=== PATIENT | male | born 1965 | race African-American/Black ===

== ENCOUNTER 2019-04-20 09:43 | Emergency (ER) | payer SELFPAY ==
--- NOTE | 2019-04-20 10:20 | ER ---
Nurse's Notes [facility] Name: Angela Weber Age: 53 yrs Sex: Male : 1965 Arrival Date: 04/20/2019 Time: 09:51 Bed 17 Private MD: Diagnosis: Restlessness and agitation;Chest pain, unspecified Presentation: 04/20 09:51 Presenting complaint: EMS states: Found in street wandering around. EMS called to ss scene, then patient began complaining of chest pain. When EMS personnel attempted to assess patient, patient became combative and uncooperative. Upon arrival to ER patient is restrained and is not admitting any chest pain at this time, but states, "I'm bipolar." Patient is not answering any questions at this time. Transition of care: patient was not received from another setting of care. Onset of symptoms is unknown. Risk Assessment: Do you want to hurt yourself or someone else? Unable to obtain. Initial Sepsis Screen: Does the patient meet any 2 criteria? RR > 20 per min. HR > 90 bpm. Does the patient have a suspected source of infection? No. Patient's initial sepsis screen is negative. Care prior to arrival: handcuffs placed by [facility] prior to arrival to ED. 4 officers are at bedside. 09:51 Method Of Arrival: EMS: [facility] 09:51 Acuity: JENNIFER 2 ss Historical: - Allergies: 09:55 Unable to obtain; ss - Home Meds: 09:55 Unable to obtain [Active]; ss - PMHx: :55 Unable to obtain; ss - PSHx: :55 Unable to obtain; ss - Immunization history:: Adult Immunizations unknown. - Social history:: Smoking status: unknown. - Ebola Screening: : Unable to complete screening because. - Family history:: not pertinent. - Hospitalizations: : No recent hospitalization is reported. Screenin:19 Abuse screen: unable to obtain due to being uncooperative. Nutritional screening: No ss deficits noted. Tuberculosis screening: unable to assess. Fall Risk None identified. Assessment: 09:51 General: Appears distressed, uncomfortable, Behavior is agitated, fussy, restless, ss uncooperative. Pain: Unable to use pain scale. Patient c/o chest pain to law enforcement, however is unwilling to answer questions for appropriate assessment. Neuro: Level of Consciousness is awake, alert, Pupils are PERRLA. Cardiovascular: Pulses are palpable in right radial artery, right posterior tibial artery, left radial artery and left posterior tibial artery. GI: Abdomen is non-distended. : No signs and/or symptoms were reported regarding the genitourinary system. EENT: Oral mucosa is moist. Musculoskeletal: Capillary refill < 3 seconds, is brisk, in bilateral fingers. Swelling absent. 10:05 General: Appears uncomfortable, Behavior is uncooperative. Neuro: Level of ss Consciousness is awake, alert. Cardiovascular: Capillary refill < 3 seconds Patient's skin is warm and dry. Respiratory: Airway is patent Respiratory effort is even, Respiratory pattern is regular. Derm: Skin is intact, Skin is pink, warm \\T\\ dry. 10:05 Pain: Complains of pain in chest, bilateral wrists. Psych: 09:51 Commitment: unable to complete. Vital Signs: 09:55 BP 169 / 69; Pulse 125; Resp 23; Pulse Ox 100% on R/A; ss 10:18 Pulse 108; Resp 20; Pulse Ox 98% on R/A; ss ED Course: 09:51 Patient arrived in ED. ss 09:51 Art Tucker MD is Attending Physician. rn 09:54 Triage completed. ss 09:54 Gal Jimenez LVN is Primary Nurse. em 09:55 Arm band placed on right wrist. ss 10:05 EKG done, by ED staff, reviewed by Art Tucker MD. em 10:19 Patient has correct armband on for positive identification. officers at bedside, pt in ss custody, restrained with handcuffs to both side rails. Pulse ox on. NIBP on. 10:43 No provider procedures requiring assistance completed. Patient did not have IV access ss during this emergency room visit. Administered Medications: No medications were administered Outcome: 10:20 Discharge ordered by . rn 10:43 Discharged to Law Enforcement 10:43 Condition: stable 10:43 Instructed on follow up and referral plans. 10:46 Patient left the ED. Signatures: Gal Jimenez LVN LVN em Art Tucker MD MD rn Smirch, Shelby, RN RN Corrections: (The following items were deleted from the chart) 10:46 10:05 Pain: Complains of pain in chest [facility] 10:50 10:05 General: Appears in no apparent distress. Behavior is uncooperative, [facility]
--- NOTE | 2019-04-20 10:20 | EDPHYS ---
Physician Documentation [facility] Name: Angela Weber Age: 53 yrs Sex: Male : 1965 Arrival Date: 04/20/2019 Time: 09:51 Bed 17 Private MD: ED Physician Art Tucker HPI: 04/20 10:09 This 53 yrs old Black Male presents to ER via EMS with complaints of Psych Problem. rn 10:09 This 53 yrs old Black Male presents to ER via EMS with complaints of chest pain. rn 10:10 The patient or guardian reports chest pain that is located primarily in the chest rn diffusely. Onset: at an unknown time. Unable to obtain HPI due to patient is being uncooperative. Pt picked up on street yelling and stopping traffic, arrested, began to complain of diffuse chest pain, brought here by police officers for combativeness and clearance. Patient refuses to comply, doesn't speak after saying his chest doesn't hurt anymore. Wont give us details, repeatedly just asks that handcuffs are removed. Police nice enough to turn patient around and handcuff him to bed in more comfortable position and still does not want to speak. . Historical: - Allergies: 09:55 Unable to obtain; ss - Home Meds: :55 Unable to obtain [Active]; ss - PMHx: :55 Unable to obtain; ss - PSHx: :55 Unable to obtain; ss - Immunization history:: Adult Immunizations unknown. - Social history:: Smoking status: unknown. - Ebola Screening: : Unable to complete screening because. - Family history:: not pertinent. - Hospitalizations: : No recent hospitalization is reported. ROS: 10:10 Unable to obtain ROS due to patient being uncooperative. rn Exam: 10:10 Constitutional: This is a well developed, well nourished patient who is awake, alert, rn uncooperative. Agitated and trying to remove handcuffs. Head/Face: Normocephalic, atraumatic. Eyes: Pupils equal round and reactive to light, extra-ocular motions intact. Lids and lashes normal. Conjunctiva and sclera are non-icteric and not injected. Cornea within normal limits. Periorbital areas with no swelling, redness, or edema. ENT: MMM Neck: Trachea midline, no masses Cardiovascular: Regular rate and rhythm. No pulse deficits. Respiratory: Speaking full sentences, yelling at police Abdomen/GI: soft, non-tender MS/ Extremity: Pulses equal, no cyanosis. Neurovascular intact. Full, normal range of motion. Equal circumference. Neuro: Awake and alert, moves all 4 extremities, does not cooperate with rest of exam. Vital Signs: 09:55 BP 169 / 69; Pulse 125; Resp 23; Pulse Ox 100% on R/A; ss 10:18 Pulse 108; Resp 20; Pulse Ox 98% on R/A; ss MDM: 09:52 Patient medically screened. rn 10:10 Differential diagnosis: anxiety, chest wall pain, tachycardia, NV, malingering. Data rn reviewed: vital signs, nurses notes. 10:16 ED course: Pt refuses to comply with anything, wont give history, has now calmed down, rn police still present. I have visited with patient 3 separate occasions and will not give me anything to work off of. No signs of trauma, improving vitals, able to get ECG that does not show any ischemia. Not sure if on drugs, but smells of ETOH. Police state their plan is to take to intermediate as originally planned, needed clearance for chest pain that patient is no longer complaining of. . 04/20 09:54 Order name: EKG; Complete Time: 09:55 rn 04/20 09:54 Order name: EKG - Nurse/Tech; Complete Time: 10:09 rn Administered Medications: No medications were administered Disposition: 04/20/19 10:20 Discharged to Home. Impression: Restlessness and agitation, Chest pain, unspecified. - Condition is Stable. - Discharge Instructions: Nonspecific Chest Pain, Pain Without a Known Cause. - Medication Reconciliation Form, Thank You Letter, Antibiotic Education, Prescription Opioid Use form. - Follow up: Private Physician; When: As needed; Reason: Recheck today's complaints, Re-evaluation by your physician. - Problem is new. - Symptoms have improved. Signatures: Art Tucker MD MD rn Smirch, Shelby, RN RN ss Corrections: (The following items were deleted from the chart) 10:46 10:20 04/20/2019 10:20 Discharged to Home. Impression: Restlessness and agitation; ss Chest pain, unspecified. Condition is Stable. Forms are Medication Reconciliation Form, Thank You Letter, Antibiotic Education, Prescription Opioid Use. Follow up: Private Physician; When: As needed; Reason: Recheck today's complaints, Re-evaluation by your physician. Problem is new. Symptoms have improved. rn
[2019-04-20 13:26] VITALS: BP 169/69
[2019-04-20 13:28] VITALS: O2SAT 98
--- NOTE | 2019-04-20 17:39 | EKG ---
Test Date: 2019-04-20 Test Time: 10:05:09 [employer]writer Assembly [employer] Inspector: MARICRUZ MEASUREMENT RESULTS: Intervals: Rate: 117 NM: 148 QRSD: 90 QT: 342 QTc: 477 [place]: P: 62 NM: 148 QRS: 70 T: 68 INTERPRETIVE STATEMENTS: Sinus tachycardia Possible Left atrial enlargement Borderline ECG No previous ECG available for comparison Electronically Signed On 04-20-19 17:39:03 CDT by Jose Novak
== END 2019-04-20 10:46 | disposition home or self-care (01) ==
LOC: ER 09:43
DX: R07.9 Chest pain, unspecified (principal)
CPT/HCPCS: 93005; 99284

== ENCOUNTER 2019-10-14 07:34 | Inpatient (IN) | payer OTHER ==
[2019-10-14 08:19] LABS: Absolute Lymphocytes (CBC) 1.2 K/uL (0.7-4.9); Basophils % 0.4 % (0-1.3); Hematocrit 45.6 % (39.6-49.0); MPV 9.8 fL (7.6-11.3); RBC Red Blood Cell Count 5.09 M/uL (4.33-5.43)
--- NOTE | 2019-10-14 08:23 | RAD REPORT ---
EXAM DESCRIPTION: CT - Head Brain Wo Cont - 10/14/2019 8:10 am CLINICAL HISTORY: SYNCOPE, transient alteration of awareness COMPARISON: No comparisons TECHNIQUE: Axial 5 mm thick images of the head were obtained without IV contrast. All CT scans are performed using dose optimization technique as appropriate and may include automated exposure control or mA/KV adjustment according to patient size. FINDINGS: No intracranial hemorrhage, mass, edema or shift of mid-line structures. No acute cortical based infarction identified. Ventricles are prominent. Mild for age volume loss changes are present. No abnormal extra-axial fluid collections. Prominent for age decreased attenuation is present in the left cerebral white matter extending into the left thalamus and basal ganglia. There are similar but less pronounced areas of diminished attenuation in the right cerebral hemisphere. Questionable dimin ished attenuation in the brainstem. This has the appearance of prominent chronic ischemic change. Non hemorrhagic CVA is easily masked in this setting. Mastoid air cells are clear. Right maxillary sinus is fully opacified. Ethmoid air cells are partiall y opacified. Frontal sinuses are not pneumatized. No acute bony findings. IMPRESSION: No hemorrhage is present and no intracranial mass lesions seen. Extensive chronic ischemic changes are present given the patient's age. Changes involve the basal hang glia, thalamus and probably brainstem tissues as well. Nonhemorrhagic CVA is easily masked in this setting.
[2019-10-14 08:24] LABS: Protime INR 0.94
[2019-10-14] MEDS ORDERED: Levofloxacin 750mg IV 750 MG/150 ML BAG IV ONE (08:24)
[2019-10-14] MEDS ORDERED: NA CHLORIDE 0.9% 1,000 ML ONE (08:24)
[2019-10-14] MEDS ORDERED: METHYLPREDNISOLONE 125 MG INJ ONE (08:24)
[2019-10-14] MEDS ORDERED: LEVALBUTEROL 1.25 MG/3 ML NEB ONE (08:24)
[2019-10-14 08:36] LABS: ALT/SGPT 16 U/L (12-78); AST/SGOT 14 U/L (15-37); Albumin 3.3 g/dL (3.4-5.0); Alkaline Phosphatase 66 U/L (45-117); BUN Blood Urea Nitrogen 13 mg/dL (7-18); Bicarbonate 25 mmol/L (21-32); Bilirubin Direct < 0.1 mg/dL (0-0.2); Bilirubin Total 0.3 mg/dL (0.2-1.0); CKMB Creatine Kinase MB 1.6 ng/mL (0.3-3.6); Creatine Phosphokinase 152 U/L (39-308); Glucose Level 104 mg/dL (74-106); Lipase 63 U/L (73-393); Magnesium 2.2 mg/dL (1.8-2.4); NT PRO-BNP 889 pg/mL (<125); Potassium 3.6 mmol/L (3.5-5.1); Protein, Total 7.5 g/dL (6.4-8.2); Sodium Level 142 mmol/L (136-145); Troponin (Emerg Dept Use Only) 0.03 ng/mL (0.0-0.045)
--- NOTE | 2019-10-14 09:07 | ER ---
Nurse's Notes [facility] Name: Angela Weber Age: 54 yrs Sex: Male : 1965 Arrival Date: 10/14/2019 Time: 07:40 Bed 2 Private MD: Diagnosis: Sepsis due to unspecified staphylococcus;Severe sepsis without septic shock;Pneumonia due to other specified bacteria;Syncope and collapse Presentation: 10/13 07:40 Chief complaint: EMS states: [facility] AND [facility] AT HOME. Coronavirus screen: The patient has bp NOT traveled to [place] in the past 14 days. Proceed with normal triage procedures. The patient has NOT had contact with known and/or suspected case of Coronavirus. Ebola Screen: No symptoms or risks identified at this time. Initial Sepsis Screen: Does the patient meet any 2 criteria? Altered Mental Status. HR > 90 bpm. Yes Does the patient have a suspected source of infection? No. Patient's initial sepsis screen is negative. Risk Assessment: Do you want to hurt yourself or someone else? Patient reports no desire to harm self or others. 07:40 Method Of Arrival: EMS: [employer] bp 07:40 Acuity: JENNIFER 2 bp 07:40 Onset of symptoms was October 14, 2019 at 06:00. bp 07:45 Care prior to arrival: IV initiated. 22 GA, in the right antecubital area, Glucose bp check: 131. Triage Assessment: 07:43 General: Appears in no apparent distress. comfortable, unkempt, Behavior is calm, bp cooperative, CONFUSED. Pain: Denies pain. EENT: No deficits noted. Neuro: Level of Consciousness is awake, alert, Oriented to person, place. Cardiovascular: Rhythm is sinus tachycardia. Respiratory: Airway is patent Respiratory effort is even, labored, Respiratory pattern is regular, symmetrical. GI: No signs and/or symptoms were reported involving the gastrointestinal system. : No signs and/or symptoms were reported regarding the genitourinary system. Derm: No deficits noted. Musculoskeletal: No deficits noted. Historical: - Allergies: 07:43 Unable to obtain; bp - PMHx: 07:43 Hypertension; CAD; bp - Immunization history:: Adult Immunizations unknown. - Social history:: Smoking status: unknown Patient/guardian denies using alcohol, street drugs, The patient lives with family, with spouse. - Family history:: not pertinent. Screenin:46 Abuse screen: Denies threats or abuse. Denies injuries from another. Nutritional bp screening: No deficits noted. Tuberculosis screening: No symptoms or risk factors identified. Fall Risk None identified. Assessment: 07:45 General: SEE TRIAGE NOTE. bp 08:30 Reassessment: PT RETURNED FROM CT. UOP PENDING, NO CHANGE IN MENTAL STATUS. bp 09:22 Reassessment: ADMIT INITIATED. PT MENTATION AT BASELINE, MAINTAINING SAT ON 2LNC. bp 10:35 Reassessment: ADMIT COMPLETE. PT MENTATION AT BASELINE. bp Vital Signs: 07:40 BP 179 / 101; Pulse 113; Resp 21; Temp 98.4; Pulse Ox 88% on R/A; Weight 63.5 kg; bp 08:30 BP 172 / 71; Pulse 97; Resp 14; Pulse Ox 100% ; bp 09:22 BP 170 / 112; Pulse 99; Resp 20; Pulse Ox 100% ; bp 10:35 BP 184 / 88; Pulse 99; Resp 20; Pulse Ox 100% ; bp ED Course: 07:40 Patient arrived in ED. bp 07:40 Vannessa Ravi F[facility]C [facility]. snw 07:40 Evaristo Cam MD is Attending Physician. snw 07:42 Triage completed. bp 07:43 Arm band placed on. bp 07:45 Maintain EMS IV. Dressing intact. Good blood return noted. Site clean \T\ dry. Gauge \T\ bp site: 20 GAUGE LEFT AC. 07:46 Misha Veliz, RN is Primary Nurse. bp 07:46 Patient has correct armband on for positive identification. Bed in low position. Call bp light in reach. Side rails up X2. 07:57 XRAY CXR (1 view) In Process Unspecified. EDMS 08:03 EKG done, by oil field technician. reviewed by Evaristo Cam MD. at1 08:10 CT Head Brain wo Cont In Process Unspecified. EDMS 09:04 Mehrdad Lake MD is Hospitalizing Provider. ma2 10:14 No provider procedures requiring assistance completed. Patient admitted, IV remains in bp place. Administered Medications: 08:05 Drug: Xopenex 1.25 mg Route: Inhalation; bp 08:05 Drug: SOLU-Medrol 125 mg Route: IVP; Site: right antecubital; bp 10:50 Follow up: Response: No adverse reaction bp 08:05 Drug: NS 0.9% 1000 ml Route: IV; Rate: 1 bolus; Site: right antecubital; bp 10:50 Follow up: IV Status: Infusion continued upon admission bp 08:20 Drug: LevaQUIN 750 mg Volume: 150 ml; Route: IVPB; Infused Over: 90 mins; Site: right bp antecubital; 10:00 Follow up: IV Status: Completed infusion; IV Intake: 250ml bp Intake: 10:00 IV: 250ml; Total: 250ml. bp Outcome: 09:05 Decision to Hospitalize by Provider. ma2 10:49 Admitted to Med/surg accompanied by tech, family with patient, via stretcher, room 411, bp with oxygen, with chart, Report called to ERICA PERDOMO 10:49 Condition: stable 10:49 Instructed on the need for admit. 11:12 Patient left the ED. iw Signatures: Dispatcher [employer] EDMS Vannessa Ravi, PACKAGING ASSOCIATE-C PACKAGING ASSOCIATE-Csnw Angelica Mckeon, RN RN iw Nicole Pillai, armhole baster hand EKG Tat1 Misha Veliz, CONOR RN bp Evaristo Cam MD MD ma2
--- NOTE | 2019-10-14 09:08 | EDPHYS ---
Physician Documentation [facility] Name: Angela Weber Age: 54 yrs Sex: Male : 1965 Arrival Date: 10/14/2019 Time: 07:40 Bed 2 Private MD: ED Physician Evaristo Cam HPI: 10/13 09:01 This 54 yrs old Male presents to ER via EMS with complaints of Altered Mental Status. ma2 09:01 The patient presents with. Onset: The symptoms/episode began/occurred gradually, 1 ma2 day(s) ago. Associated signs and symptoms: Pertinent negatives: ataxia, combativeness, confusion. Current symptoms: In the emergency department the patient's symptoms are unchanged from the initial presentation. The patient has not experienced similar symptoms in the past. has had cough for 2 days, this morning found him with low LOC, spo2 was 70s, when ems arrived he was back to 90 ater 1 albuterol nebs . Historical: - Allergies: 07:43 Unable to obtain; bp - PMHx: 07:43 Hypertension; CAD; bp - Immunization history:: Adult Immunizations unknown. - Social history:: Smoking status: unknown Patient/guardian denies using alcohol, street drugs, The patient lives with family, with spouse. - Family history:: not pertinent. ROS: 09:01 Constitutional: Negative for fever, chills, and weight loss. ma2 09:01 All other systems are negative. Exam: 09:01 Constitutional: This is a well developed, well nourished patient who is awake, alert, ma2 and in no acute distress. Head/Face: Normocephalic, atraumatic. Eyes: Pupils equal round and reactive to light, extra-ocular motions intact. Lids and lashes normal. Conjunctiva and sclera are non-icteric and not injected. Cornea within normal limits. Periorbital areas with no swelling, redness, or edema. ENT: Nares patent. No nasal discharge, no septal abnormalities noted. Tympanic membranes are normal and external auditory canals are clear. Oropharynx with no redness, swelling, or masses, exudates, or evidence of obstruction, uvula midline. Mucous membranes moist. Neck: Trachea midline, no thyromegaly or masses palpated, and no cervical lymphadenopathy. Supple, full range of motion without nuchal rigidity, or vertebral point tenderness. No Meningismus. Chest/axilla: Normal chest wall appearance and motion. Nontender with no deformity. No lesions are appreciated. Cardiovascular: Regular rate and rhythm with a normal S1 and S2. No gallops, murmurs, or rubs. Normal PMI, no JVD. No pulse deficits. Abdomen/GI: Soft, non-tender, with normal bowel sounds. No distension or tympany. No guarding or rebound. No evidence of tenderness throughout. 09:01 Respiratory: mild respiratory distress is noted, Respirations: asymmetrical chest movement, Breath sounds: rales, rhonchi, that are mild, are scattered. 09:01 MS/ Extremity: Pulses equal, no cyanosis. Neurovascular intact. Full, normal range ma2 of motion. Neuro: Awake and alert, GCS 15, oriented to person, place, time, and situation. Cranial nerves II-XII grossly intact. Motor strength 5/5 in all extremities. Sensory grossly intact. Cerebellar exam normal. Normal gait. Vital Signs: 07:40 BP 179 / 101; Pulse 113; Resp 21; Temp 98.4; Pulse Ox 88% on R/A; Weight 63.5 kg; bp 08:30 BP 172 / 71; Pulse 97; Resp 14; Pulse Ox 100% ; bp 09:22 BP 170 / 112; Pulse 99; Resp 20; Pulse Ox 100% ; bp 10:35 BP 184 / 88; Pulse 99; Resp 20; Pulse Ox 100% ; bp MDM: 07:52 Patient medically screened. ma2 09:01 Differential Diagnosis: pneumonia, TIA, UTI, volume depletion. Data reviewed: vital ma2 signs, nurses notes. Counseling: I had a detailed discussion with the patient and/or guardian regarding: the historical points, exam findings, and any diagnostic results supporting the discharge/admit diagnosis, the presence of at least one elevated blood pressure reading (>120/80) during this emergency department visit, the need for outpatient follow up. Response to treatment: the patient's symptoms have markedly improved after treatment. 10/13 07:44 Order name: Blood Culture Adult (2) ma2 10/13 07:44 Order name: BMP; Complete Time: 08:41 ma2 10/13 07:44 Order name: CBC with Diff; Complete Time: 08:41 ma2 10/13 07:44 Order name: Ckmb; Complete Time: 08:41 ma2 10/13 07:44 Order name: CPK; Complete Time: 08:41 ma2 10/13 07:44 Order name: Hepatic Function; Complete Time: 08:41 ma2 10/13 07:44 Order name: Lipase; Complete Time: 08:41 ma2 10/13 07:44 Order name: Magnesium; Complete Time: 08:41 ma2 10/13 07:44 Order name: NT PRO-BNP; Complete Time: 08:41 ma2 10/13 07:44 Order name: PT-INR; Complete Time: 08:41 ma2 10/13 07:44 Order name: Ptt, Activated; Complete Time: 08:41 ma2 10/13 07:44 Order name: Troponin (emerg Dept Use Only); Complete Time: 08:41 ma2 10/13 07:44 Order name: Flu; Complete Time: 08:48 ma2 10/13 07:49 Order name: Lactate; Complete Time: 08:48 bp 10/13 07:44 Order name: XRAY CXR (1 view) ma2 10/13 07:44 Order name: EKG; Complete Time: 07:46 ma2 10/13 07:44 Order name: Cardiac monitoring; Complete Time: 07:47 ma2 10/13 07:44 Order name: EKG - Nurse/Tech; Complete Time: 08:04 ma2 10/13 07:44 Order name: IV Saline Lock; Complete Time: 07:46 ma2 10/13 07:44 Order name: CT Head Brain wo Cont; Complete Time: 08:41 ma2 10/13 07:49 Order name: Procalcitonin bp 10/13 07:53 Order name: UDS ma2 10/13 07:53 Order name: Alcohol Level; Complete Time: 08:48 ma2 10/13 09:49 Order name: Urine Dipstick--Ancillary (enter results) bd 10/13 10:02 Order name: Urine Dipstick-Ancillary EDMS 10/13 07:44 Order name: Labs collected and sent; Complete Time: 08:04 ma2 10/13 07:44 Order name: O2 Per Protocol; Complete Time: 07:46 ma2 10/13 07:44 Order name: O2 Sat Monitoring; Complete Time: 07:46 ma2 10/13 07:53 Order name: Urine Dipstick-Ancillary (obtain specimen); Complete Time: 10:01 ma2 Administered Medications: 08:05 Drug: Xopenex 1.25 mg Route: Inhalation; bp 08:05 Drug: SOLU-Medrol 125 mg Route: IVP; Site: right antecubital; bp 10:50 Follow up: Response: No adverse reaction bp 08:05 Drug: NS 0.9% 1000 ml Route: IV; Rate: 1 bolus; Site: right antecubital; bp 10:50 Follow up: IV Status: Infusion continued upon admission bp 08:20 Drug: LevaQUIN 750 mg Volume: 150 ml; Route: IVPB; Infused Over: 90 mins; Site: right bp antecubital; 10:00 Follow up: IV Status: Completed infusion; IV Intake: 250ml bp Disposition: 10/14/19 09:05 Hospitalization ordered by Mehrdad Lake for Inpatient Admission. Preliminary diagnosis are Severe sepsis without septic shock, Sepsis due to unspecified staphylococcus, Pneumonia due to other specified bacteria, Syncope and collapse. - Bed requested for Telemetry/MedSurg (Inpatient). - Status is Inpatient Admission. iw - Condition is Stable. - Problem is new. - Symptoms are unchanged. Signatures: Dispatcher [employer] Flaca Rodriguez RN RN dw Williams, Irene, RN RN iw Peltier, Brian, RN RN bp Alzahri, Mohammad, MD MD ma2 Corrections: (The following items were deleted from the chart) 09:48 09:05 Hospitalization Ordered by Mehrdad Lake MD for Inpatient Admission. Preliminary dw diagnosis is Severe sepsis without septic shockSepsis due to unspecified staphylococcus; Pneumonia due to other specified bacteria; Syncope and collapse. Bed requested for Telemetry/MedSurg (Inpatient). Status is Inpatient Admission. Condition is Stable. Problem is new. Symptoms are unchanged. ma2 11:12 09:48 10/14/2019 09:05 Hospitalization Ordered by Mehrdad Lake MD for Inpatient iw Admission. Preliminary diagnosis is Severe sepsis without septic shockSepsis due to unspecified staphylococcus; Pneumonia due to other specified bacteria; Syncope and collapse. Bed requested for Telemetry/MedSurg (Inpatient). Status is Inpatient Admission. Condition is Stable. Problem is new. Symptoms are unchanged. dw
--- NOTE | 2019-10-14 09:37 | RAD REPORT ---
EXAM DESCRIPTION: RAD - Chest Single View - 10/14/2019 7:57 am CLINICAL HISTORY: CONGESTION, code sepsis chest film COMPARISON: No comparisons TECHNIQUE: AP portable chest image was obtained 10/14/2019 7:57 am . FINDINGS: Normal lung volumes noted. Hazy alveolar opacification present in the mid and lower right lung field. Mild perihilar opacification present. Trachea is midline. No measurable pleural effusion and no pneumothorax. No acute bony abnormality seen. No acute aortic findings suspected. IMPRESSION: Airspace opacification right lung field without dense consolidation. Right-side pneumoni a is most likely.
[2019-10-14 10:00] LABS: Barbiturates NEGATIVE (NEGATIVE); Benzodiazepines NEGATIVE (NEGATIVE); Cocaine NEGATIVE (NEGATIVE); METHAMPHETAM NEGATIVE (NEGATIVE); Methadone NEGATIVE (NEGATIVE); Opiates NEGATIVE (NEGATIVE); Phencyclidine NEGATIVE (NEGATIVE); THC Cannibis NEGATIVE (NEGATIVE)
[2019-10-14 10:01] LABS: Urine Blood 1+ (NEG); Urine Glucose NEGATIVE (NEG); Urine Protein 2+ (NEG); Urine Specific Gravity >1.030 (1.005-1.030)
[2019-10-14] MEDS ORDERED: ONDANSETRON 4 MG/2 ML VIAL IV PRN (11:31)
[2019-10-14] MEDS ORDERED: ALBUTEROL 2.5 MG/3 ML NEB SOL NEB PRN ×2 (11:31→17:00)
[2019-10-14] MEDS ORDERED: ACETAMINOPHEN 500 MG TAB PO PRN (11:31)
[2019-10-14] MEDS: NA CHLORIDE 0.9% 1,000 ML IV SCH ×2 (11:31→22:30)
[2019-10-14] MEDS ORDERED: INFLUENZA VACCINE (for 3y+) 0.5 ML DOSE IMVAC ONE (12:00)
[2019-10-14] MEDS: CEFTRIAXONE/SWI 1gm 1 GM/10 ML SYR IV SCH ×2 (12:15→22:29)
--- NOTE | 2019-10-14 12:22 | EKG ---
Test Date: 2019-10-14 Test Time: 08:00:56 Manager Fund: BEAU MEASUREMENT RESULTS: Intervals: Rate: 105 SC: 168 QRSD: 80 QT: 370 QTc: 489 Linn: P: 67 SC: 168 QRS: 78 T: 69 INTERPRETIVE STATEMENTS: Sinus tachycardia Minimal voltage criteria for LVH, may be normal variant Borderline ECG Compared to ECG 04/20/2019 10:05:09 Left ventricular hypertrophy now present Electronically Signed On 10-14-19 12:21:19 [employer] SUPERVIS[employer] by Jarod Sommer
[2019-10-14] MEDS: AZITHROMYCIN IV 500 MG in NA CHLORIDE 0.9% 250 ML IVPB SCH (14:02)
[2019-10-14] MEDS: DULERA 100/5 (MOMETASONE/FORMOTEROL) INHALER IH SCH (21:00)
[2019-10-14] MEDS: carvediloL 3.125 MG TAB PO SCH (22:27)
[2019-10-14] MEDS: CLOTRIMAZOLE 1% CREAM 15 GM TOP SCH (22:29)
--- NOTE | 2019-10-14 23:47 | HP ---
Date of Admission: 10/14/2019 Chief Complaint: Nonresponsiveness, hypoxia, pneumonia. History Of Present Illness: Patient is a 54-year-old male with past medical history of congestive heart failure, hypertension, who was in his usual state of health until day of admission when the patient was found to be nonresponsive in the morning, not responding to his . EMS was called. He was found to be hypoxic with the O2 saturations in 70s. Patient otherwise denies any significant fever, chills. No ill contacts. Patient was placed on oxygen and he was brought in to the ER. By the time he arrived to the ER, he became more responsive, was alert and oriented x2. His workup revealed elevated white count of 12,000. His lactate was 4. Procalcitonin was negative. He was tachycardic and tachypneic. Patient is a heavy smoker and likely has undiagnosed COPD. He was given IV fluids, IV antibiotics. His repeat lactate improved to 2 and he was referred for admission. Patient's symptoms were constant, moderate, progressively worsening. By the time I saw him in the ER, he was awake, alert, oriented, eating lunch with his family. Past Medical History: Congestive heart failure, hypertension, and most likely undiagnosed COPD. Past Surgical History: None. Allergies: NO KNOWN DRUG ALLERGIES. Medications: Patient takes amlodipine 5 mg daily, Coreg 3.125 mg b.i.d., Lasix 40 mg daily, and Lotrimin topical ointment as needed. Family History: Positive for heart disease, stroke, diabetes. Review of Systems: Ten-point system reviewed, negative except as per HPI. Physical Examination: Vital Signs: Temperature 98.4, heart rate 113, respirations 21, blood pressure 179/101, O2 saturations 88% on 2 L. General: Awake, alert, oriented, in some mild respiratory distress, ill- appearing male. HEENT: Normocephalic, atraumatic. PERRLA. EOMI. Dry mucous membranes. Oropharynx is clear. Poor dentition. Conjunctivae are anicteric. Neck: Supple. No JVD. Trachea midline. CV: S1, S2. Sinus tachycardia. Peripheral pulses present. Respiratory: Diminished breath sounds, worse on the right. No crackles. Minimal wheezing. Patient is tachypneic with use of accessory muscles. Gastrointestinal: Abdomen is soft, nontender, nondistended. Positive bowel sounds. No guarding or rigidity. Extremities: No clubbing, cyanosis, or edema. No calf tenderness. NEUROLOGIC: Cranial nerves 2 through 12 intact grossly. No focal neurological deficits. Speech is normal. SKIN: No rashes. Normal skin turgor. Psychiatric: Mood is okay. Affect is full. Insight and judgment are good. Laboratory Data: WBC 12.4, H and H 14.5 and 45.6, platelets 195, neutrophils 79 %. INR 0.94. Sodium 142, potassium 3.6, chloride 109, CO2 of 25, BUN 13, creatinine 1.3, glucose 104, lactate 4.1, repeat lactate is 2, calcium 8.9, magnesium 2.2. Troponin 0.03. Albumin 3.3. Procalcitonin less than 0.05. UA : 1+ blood, negative nitrite, negative leukocyte esterase. UDS is negative. Alcohol level less than 10. Influenza screen is negative. Imaging Studies: Chest x-ray, personally reviewed, shows airspace opacification right lung field without dense consolidation, right-sided pneumonia is most likely. CT scan of the head, personally reviewed, shows no hemorrhage, no intracranial mass lesion seen, extensive chronic ischemic changes are present given the patient's age. Changes involve the basal ganglia , thalamus, and probably brainstem tissues Assessment and plan: 1. Syncope. Unclear etiology. Possible neurogenic vs cardiogenic causes. Place on telemetry. CT brain shows extensive chronic disease, may need MRI to r/ out occult CVA. Will obtain echo, carotid sono. Monitor closely 2. Acute respiratory failure. Patient was hypoxic as low as 70% but improved on nasal cannula. Likely due to PNA, COPD 3. PNA right sided. Likely aspiration type. Start on IV abx. Blood and sputum cultures. 4. COPD. Chronic bronichits. Never been diagnosed before. heavy smoker. Add nebs and advair. 5. CHF. Likely diastolic heart failure. Resume home meds. Monitor I/Os 6. HTN. Stable. Resume home meds. 7. Nicotine dependance w cigarette smoking. Counseled. Admit pt to med surg, place as jake LEE/BELKYS Voice ID: [id number] RICHARDSON
[2019-10-15 04:25] LABS: Absolute Lymphocytes (CBC) 1.4 K/uL (0.7-4.9); Basophils % 0.2 % (0-1.3); Hematocrit 37.5 % (39.6-49.0); Lymphocytes % 9.9 % (15.3-44.8); MPV 9.5 fL (7.6-11.3); RBC Red Blood Cell Count 4.16 M/uL (4.33-5.43)
[2019-10-15 04:47] LABS: Albumin 2.9 g/dL (3.4-5.0); Bilirubin Total 0.3 mg/dL (0.2-1.0); Potassium 4.3 mmol/L (3.5-5.1); Protein, Total 6.7 g/dL (6.4-8.2)
[2019-10-15] MEDS: NA CHLORIDE 0.9% 1,000 ML IV SCH ×2 (09:29→17:31)
[2019-10-15] MEDS: AMLODIPINE 5 MG TAB PO SCH (09:30)
[2019-10-15] MEDS: carvediloL 3.125 MG TAB PO SCH ×2 (09:30→20:43)
[2019-10-15] MEDS: ENOXAPARIN 40 MG/0.4 ML SQ SCH (09:30)
[2019-10-15] MEDS: DULERA 100/5 (MOMETASONE/FORMOTEROL) INHALER IH SCH ×2 (09:30→20:45)
[2019-10-15] MEDS: CEFTRIAXONE/SWI 1gm 1 GM/10 ML SYR IV SCH ×2 (09:30→20:43)
[2019-10-15] MEDS: CLOTRIMAZOLE 1% CREAM 15 GM TOP SCH ×2 (09:31→20:46)
[2019-10-15] MEDS: FUROSEMIDE 40 MG TABLET PO SCH (09:33)
--- NOTE | 2019-10-15 12:41 | P.CNS ---
Date of Consult: 10/15/19 Reason for Consult: poss COPD/ pneumonia Chief Complaint: Unresponsive History of Present Illness: PT i s54 yrs of age hevy smoker was found unresponsive. Denies any symptoms. Family at bedsde. No SOb fever or cough. No prior Hxo fCOPD. Heart problems and HTN .CT head neg. Poss R lung pneumonia. Elevated WBC Allergies No Known Allergies Allergy (Unverified 10/14/19 11:31) Home Medications: Amlodipine [Norvasc*] 1 tab PO DAILY 10/14/19 Clotrimazole [Lotrimin 1% Cream*] 1 appl TOP BID 10/14/19 Furosemide 1 tab PO DAILY 10/14/19 carvediloL [Carvedilol] 1 tab PO BID 10/14/19 Aspirin [Aspirin EC 81 MG] 81 mg PO DAILY #30 tablet.dr 10/17/19 Atorvastatin Calcium [Lipitor] 40 mg PO BEDTIME #30 tab 10/17/19 Azithromycin Tab [Zithromax*] 250 mg PO DAILY #3 tab 10/17/19 Cefuroxime Axetil [Cefuroxime] 500 mg PO BID #10 tab 10/17/19 Mometasone/Formoterol [Dulera 100 Mcg/5 Mcg Inhaler] 2 puff IH BID #1 inhaler carBAMazepine [Tegretol*] 200 mg PO BID #60 tab 10/17/19 levETIRAcetam [Keppra*] 500 mg PO BID #60 tab 10/17/19 - Past Medical/Surgical History Diabetic: No -: HTN -: CAD - Social History Smoking Status: Current every day smoker Alcohol use: Yes CD- Drugs: No Caffeine use: Yes Place of Residence: Home Review of Systems 10-point ROS is otherwise unremarkable Physical Examination Temp Pulse Resp BP Pulse Ox 97.7 F 73 16 148/68 H 100 10/15/19 12:00 10/15/19 12:00 10/15/19 12:00 10/15/19 12:00 10/15/19 12:00 General: Alert, Oriented x3 HEENT: Atraumatic Neck: Supple Respiratory: Clear to auscultation bilaterally Cardiovascular: No edema, Regular rate/rhythm Gastrointestinal: Normal bowel sounds, Soft and benign Musculoskeletal: No clubbing, No contractures - Problems (1) Pneumonia Current Visit: Yes Status: Acute Plan: Age 54 yrs of age found unresponsive. No prior Hx Denies any neurological symptoms. Hypoxic. Likely pneumonia. Heavy smoker. Poor historian. FAmily members at bedside.Ct neg. consider D/C on Levaquin an dDulera prn . f/u with in 2 wks .Cultures neg. Ct head neg. Doubt stroke. Counselled not to smoke. Qualifiers: Pneumonia type: due to unspecified organism Laterality: right
[2019-10-15] MEDS: AZITHROMYCIN IV 500 MG in NA CHLORIDE 0.9% 250 ML IVPB SCH (13:54)
--- NOTE | 2019-10-15 14:57 | RAD REPORT ---
EXAM DESCRIPTION: - CP - 10/15/2019 2:43 pm CLINICAL HISTORY: syncope Headache COMPARISON: No comparisons TECHNIQUE: Real-time sonographic evaluation of both carotid systems was performed. Doppler interroga tion was performed with waveform tracing bilaterally. FINDINGS: Normal high resistance waveforms are noted in both external carotid arteries. The common c arotid arteries and internal carotid arteries show normal low resistance waveforms. Small hard plaque is present in the left carotid bulb. Peak systolic and end diastolic velocity value s and the ICA/CCA ratios are in the non-hemodynamically significant range. Antegrade flow seen in both vertebral arteries. IMPRESSION: Small hard plaque is present in the left carotid bulb. No evidence of a hemodynamically significant stenosis.
--- NOTE | 2019-10-15 15:48 | ECHO ---
HEIGHT: 5 ft 4 in WEIGHT: 139 lb 0 oz DATE OF STUDY: 10/15/[address]: Mehrdad Lake MD 2-DIMENSIONAL: YES M.MODE: YES DOPPLER: YES COLOR FLOW: YES TDS: NO PORTABLE: NO DEFINITY: NO BUBBLE STUDY: NO DIAGNOSIS: SYNCOPE CARDIAC HISTORY: CATHERIZATION: NO SURGERY: NO PROSTHETIC VALVE: NO PACEMAKER: NO MEASUREMENTS (cm) DIASTOLIC (NORMALS) SYSTOLIC (NORMALS) IVSd 1.0 (0.6-1.2) LA Diam 2.5 (1.9-4.0) LVEF 71% LVIDd 4.7 (3.5-5.7) LVIDs 2.8 (2.0-3.5) %FS 41% LVPWd 1.1 (0.6-1.2) Ao Diam 2.5 (2.0-3.7) 2 DIMENSIONAL ASSESSMENT: RIGHT ATRIUM: NORMAL LEFT ATRIUM: NORMAL RIGHT VENTRICLE: NORMAL LEFT VENTRICLE: NORMAL TRICUSPID VALVE: NORMAL MITRAL VALVE: NORMAL PULMONIC VALVE: NORMAL AORTIC VALVE: NORMAL PERICARDIAL EFFUSION: NONE AORTIC ROOT: NORMAL LEFT VENTRICULAR WALL MOTION: NORMAL DOPPLER/COLOR FLOW: MILD AORTIC REGURGITATION. COMMENTS: NORMAL 2D ECHOCARDIOGRAM. MILD AORTIC REGURGITATION. TECHNOLOGIST: Dom GOTTLIEB
--- NOTE | 2019-10-15 16:03 | CON ---
Identification: Mr. Weber is 54. Reason For Consult: Loss of consciousness. History Of Present Illness: Mr. Weber was in his usual state of health yesterday, although for a year , his believes he has been looking like he has had a stroke. Left side of his face droops and t he left leg drags a little bit when he walks. He walks unevenly. He did not have it evaluated as an outpatient. He sees a physician, takes blood pressure medicines. This morning, his tried to w shereen him up and he would not wake up. He was unresponsive with his eyes rolled in the back in his bed . He was covered with sweat and he lost control of his bladder and had urinated all over the bed. S he called 911. He awakened at home but does not remember anything like that. He just remembers awak ening now. He does not appear to have an injured tongue or any other injuries. He does not have any clinical history of stroke, although his believes he had one without seeking any medical attent ion. Outpatient Medications: Carvedilol, furosemide, amlodipine, and Lotrimin cream. Review of Systems: Denies having chest pain, shortness of breath. No nausea, vomiting, or sweating. He has no memory o f the event. Allergies: HE HAS NO ALLERGIES. Social History: He uses 1 pack of cigarettes per day, although he is trying to cut down. Alcohol us e, moderate. No illegal drugs. Physical Examination: Vital Signs: 5 feet 4 inches, 139 pounds. Blood pressure 148/68, pulse 73, temperature 97.7. HEENT: Normal. Mild left facial droop. Lungs: Clear. Neck: Carotids, no bruit. Heart: Within normal limits. Abdomen: Soft. Extremities: Palpable distal pulses, but diminished. No cyanosis, clubbing, or edema. His electrocardiogram shows sinus tachycardia, heart rate 105, minimal voltage for left ventricular h ypertrophy. Impression: Mr. Weber probably had a seizure this morning. I think, he should have a neurological ev aluation and I think he should have a workup to see if he has had seizure, get an MRI and MRA to see if there is vascular disease. Of course, he needs to quit smoking. A carotid Doppler may be helpful to see if there is subclavian steal syndrome. We will do an echo and see if there is anything sugge stive of his heart that could have caused him to lose consciousness, but I think this is a neurologic al event, probably a seizure related in some way to an old stroke that has previously been undiagnose makenna PATTON/BELKYS Voice ID: [id number] Report ID: [id number]
--- NOTE | 2019-10-15 16:37 | RAD REPORT ---
EXAM DESCRIPTION: MRI - Brain Wo Cont - 10/15/2019 3:33 pm CLINICAL HISTORY: Syncope COMPARISON: October 14, 2019 TECHNIQUE: Axial, sagittal, and coronal magnetic images of the brain were obtained. Contrast was not requested FINDINGS: Moderate signal within periventricular, deep and subcortical white matter. Areas of abnormal signal within the thalami and basal ganglia probably old lacunar infarcts. Abnormal signal within the basal ganglia and thalami bilaterally probably old lacunar infarcts Diffusion-weighted/ADC mapping does not reveal evidence of acute infarction. The ventricles are normal caliber. An extra-axial fluid collection is not present Borderline pituitary gland enlargement A mild to moderate ethmoid and right maxillary sinusitis IMPRESSION: Moderate signal within periventricular, deep and subcortical white matter. This probably is ischemic changes secondary to small vessel disease. A demyelinating process can also have this ap pearance Borderline pituitary gland enlargement
[2019-10-15 16:38] LABS: Arterial Blood Carboxyhemoglob 1.1 % (0-1.5); Blood O2 Saturation 95.8 % (92-98.5)
[2019-10-15] MEDS ORDERED: ENALAPRILAT 1.25 MG/ML VIAL IV PRN (17:05)
--- NOTE | 2019-10-15 20:31 | PN ---
Date of Progress Note: 10/15/2019 Subjective: Patient seen and examined. Chart reviewed and case discussed with RN and Dr. Baldev arrington well as Dr. Mckenzie. Patient seems to be doing better. No further episodes of syncope or seizure -type activity. Now off oxygen. Medications: List reviewed. Physical Examination: Vital Signs: Temperature 98, heart rate 77, blood pressure 166/79, respirations 16, O2 of 95% on sarkis m air. General: Awake, alert, oriented x3. Appears older than stated age, not in any acute distress. CV: S1, S2. Regular rate and rhythm. Peripheral pulses present. Respiratory: Moving air well bilaterally. No wheezing or stridor. Minimal diminished breath sounds on the right base. Gastrointestinal: Abdomen is soft, nontender, nondistended. Positive bowel sounds. Extremities: No clubbing, cyanosis, or edema. Neurologic: Cranial nerves 2 through 12 intact grossly. No focal neurological deficits. Speech is normal. Laboratory Data: Sodium 140, potassium 4.3, chloride 109, CO2 of 26, BUN 19, creatinine 1.13, glucos e 115, lactate 2, calcium 8.8, albumin 2.9. WBC 14.1, hemoglobin and hematocrit 12.3 and 37.5, plate lets 167, neutrophils 80%. Blood cultures, no growth to date. Imaging Studies: MRI of the brain shows moderate signal within the periventricular deep and subcorti faith white matter, probably ischemic changes secondary to small vessel disease. Demyelinating process can also have this appearance. Borderline pituitary gland enlargement, abnormal signal within the t halami and basal ganglia, probably old lacunar infarcts. Carotid artery ultrasound shows small heart plaque is present in the left carotid bulb. No evidence of hemodynamically significant stenosis. E chocardiogram shows EF of 71%, mild aortic regurgitation. Assessment: A 54-year-old male with: 1.Syncopal episode, likely seizure or other neurogenic episode. Patient's MRI is negative for any a cute stroke. Does show old lacunar infarcts. Pending neuro eval and EEG. We will place on seizure precautions. We will defer to Neurology regarding any antiseizure medications for now. Appreciate Allyson Novak' input. Echocardiogram is normal. Carotid artery ultrasound does show some heart plaquing , but no hemodynamically significant stenosis. We will continue on aspirin and statin. 2.Acute respiratory failure, hypoxic secondary to pneumonia, chronic obstructive pulmonary disease, improved. Now on room air. Appreciate Dr. De Paz's input. 3.Right lobe pneumonia, possible aspiration type pneumonia. We will continue on IV antibiotics. Cu ltures are negative to date. Negative flu screen. 4.Chronic obstructive pulmonary disease, chronic bronchitis. Patient is doing well on nebulizers. Advair has been added. We will need to have PFTs done as an outpatient. He can follow up with Dr. Edwar oh in his office. 5.Congestive heart failure, diastolic dysfunction. Echo shows normal ejection fraction. 6.Essential hypertension, stable. We will continue home medications. 7.Metabolic acidosis, resolved. Lactate back to normal. 8.Nicotine dependence with cigarette smoking, counseled. 9.Deep vein thrombosis prophylaxis. Lovenox/. Plan: Pending neuro eval and EEG. Likely discharge in a.m. once clinically stable and cleared from trousseau consultant's standpoint. /BELKYS Voice ID: [id number] Report ID: [id number]
[2019-10-16 04:36] LABS: Phosphorus 4.1 mg/dL (2.5-4.9); Potassium 4.1 mmol/L (3.5-5.1)
[2019-10-16] MEDS ORDERED: LABETALOL HCL 100 MG/20 ML ONE (06:30)
[2019-10-16 06:45] LABS: Absolute Lymphocytes (CBC) 4.8 K/uL (0.7-4.9); Basophils % 0.9 % (0-1.3); Hematocrit 46.3 % (39.6-49.0); Lymphocytes % 32.6 % (15.3-44.8); MPV 10.2 fL (7.6-11.3); RBC Red Blood Cell Count 4.99 M/uL (4.33-5.43)
[2019-10-16 06:46] LABS: Arterial Blood Carboxyhemoglob 0.5 % (0-1.5); Blood Gas Oxyhemoglobin 88.7 % (94-97); Blood O2 Saturation 89.9 % (92-98.5)
--- NOTE | 2019-10-16 06:57 | P.PN ---
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 BP was 215 /110 , given labetalol 20 mg stat , head ct , labs ordered , may need EEG . suspected htn encephalopathy
[2019-10-16] MEDS: CLOTRIMAZOLE 1% CREAM 15 GM TOP SCH ×2 (09:00→20:48)
--- NOTE | 2019-10-16 09:07 | RAD REPORT ---
EXAM DESCRIPTION: CT - Head Brain Wo Cont - 10/16/2019 7:06 am CLINICAL HISTORY: Seizure COMPARISON: October 14, [address] TECHNIQUE: Computed axial tomography of the head was obtained. IV contrast was not requested. All CT scans are performed using dose optimization technique as appropriate and may include automated exposure control or mA/KV adjustment according to patient size. FINDINGS: An intracranial bleed is not seen . The ventricles are normal in caliber. No extra-axial fluid collection is noted. Low-density areas within the thalamus and basal ganglia curt aterally compatible with old lacunar infarcts Moderate low-density areas within periventricular, deep and subcortical white matter likely represent ischemic changes secondary to small vessel disease. A demyelinating process can also this appearance Fluid within the sinuses/ mastoids is not seen. IMPRESSION: No acute intracranial abnormality is seen.
[2019-10-16] MEDS: carvediloL 3.125 MG TAB PO SCH ×2 (09:49→20:52)
[2019-10-16] MEDS: FUROSEMIDE 40 MG TABLET PO SCH (09:49)
[2019-10-16] MEDS: AMLODIPINE 5 MG TAB PO SCH (09:49)
[2019-10-16] MEDS: ENOXAPARIN 40 MG/0.4 ML SQ SCH (09:50)
[2019-10-16] MEDS: CEFTRIAXONE/SWI 1gm 1 GM/10 ML SYR IV SCH ×2 (09:50→20:48)
[2019-10-16] MEDS: DULERA 100/5 (MOMETASONE/FORMOTEROL) INHALER IH SCH ×2 (09:53→20:47)
[2019-10-16] MEDS ORDERED: levETIRAcetam 1,000 MG in NA CHLORIDE 0.9% 100 ML IV ONE (11:15)
[2019-10-16] MEDS ORDERED: carBAMazepine 200 MG TAB PO SCH (11:32)
[2019-10-16] MEDS: AZITHROMYCIN IV 500 MG in NA CHLORIDE 0.9% 250 ML IVPB SCH (12:00)
[2019-10-16] MEDS: carBAMazepine 200 MG TAB PO SCH ×2 (12:08→20:47)
--- NOTE | 2019-10-16 19:02 | PN ---
Patient had been admitted with acute respiratory failure, was seen by Dr. Novak on 10/15/2019. Dr. Novak felt that his main problem is seizure disorder. The patient is on Coreg, Lasix, and Norvasc. MRA and MRI were ordered yesterday. He has small-vessel disease. Carotid Doppler showed no focal s tenosis. Echocardiogram was normal, had another seizure episode today. Neurology consultation is pe nding. We will sign off his case. ERVIN/BELKYS Voice ID: [id number] Report ID: [id number]
--- NOTE | 2019-10-16 20:23 | PN ---
Date of Progress Note: 10/16/2019 Subjective: Patient is seen and examined. Chart reviewed and case discussed with RN and Dr. Fanta purcell as well as Dr. Sommer. Patient apparently had a seizure episode early this morning, was foaming a t the mouth, found unresponsive by the Respiratory. He was somewhat hypoxic. Head CT scan was done, which was negative. Subsequently, talking to the family. They reported that yes patient does have history of seizures and not taking his Tegretol since April. Medication List: Reviewed. Physical Examination: Vital Signs: Temperature 98, heart rate 76, blood pressure 127/86, respirations 18, O2 of 92% on sarkis m air. General: Awake, alert, oriented x3. Appears older than stated age ill-appearing male. CV: S1, S2. Regular rate and rhythm. Peripheral pulses present. Respiratory: Moving air well bilaterally. Abdomen: Soft, nontender, nondistended. Positive bowel sounds. Extremities: No clubbing, cyanosis, or edema. Neuro: Nonfocal. Laboratory Data: Sodium 139, potassium 4.1, chloride 106, CO2 of 29, BUN 28, creatinine 1.05, glucos e 92, calcium 8.9, phosphorus 4.1. WBC 14.8, H and H of 14.6 and 46.3, platelets 205, neutrophils 53 %. Blood cultures show no growth to date. Head CT scan personally reviewed shows no acute intracran ial abnormality. Assessment: A 54-year-old male with: 1.Syncopal episode likely secondary to seizure. EEG was done yesterday, pending report. Appreciate Dr. Mckenzie's input. Patient was loaded with Keppra today and his home dose of Tegretol was restar mikhail. Patient still is not aware that he has a history of seizures. This is obtained from the family . 2.Acute seizure. Patient does have history of epilepsy, not well controlled. He was not taking his Tegretol since April. Loaded with Keppra 500 mg p.o. b.i.d. We will continue to monitor on sei zure precautions. 3.Acute respiratory failure with hypoxia secondary to pneumonia and chronic obstructive pulmonary di sease, improving now on room air. 4.Right lower lobe pneumonia likely aspiration type pneumonia. Continue IV antibiotics. Cultures n egative to date. 5.Chronic obstructive pulmonary disease, chronic bronchitis. Follow up outpatient for PFTs, stable. 6.Congestive heart failure, diastolic dysfunction. Ejection fraction is normal. We will continue w ith strict I's and O's. Monitor daily weight, free fluid restriction. 7.Essential hypertension, stable, on home medications. 8.Metabolic acidosis, resolved. 9.Nicotine dependence with cigarette smoking, counseled. 10.Deep venous thrombosis prophylaxis with Lovenox. Plan: Discharge once seizure free and stable on anticonvulsants. We will follow up on EEG report. White blood cell count elevation likely reactive to his seizures. No signs of sepsis. SA/MODL Voice ID: [id number] Report ID: [id number]
[2019-10-16] MEDS: levETIRAcetam 500 MG TAB PO SCH (20:47)
--- NOTE | 2019-10-16 21:59 | CON ---
Reason For Consultation: Consultation called because patient found unresponsive, hypoxic, and had an aspiration pneumonia. History Of Present Illness: Mr. Weber is a 54-year-old patient with apparent history of complex parti al seizures with secondary generalization for which he was not compliant with his antiepileptic medic ation, Tegretol. He was found by his unresponsive and emergency department service was summoned . He was found to be hypoxic with oxygen saturation in the 70s. Patient was given oxygen and he wok e up and was alert and oriented to person and situation. The white count was slightly elevated with elevated lactic acid and he had tachycardia with tachypnea. He has had IV fluids and did improve his lactic acid and was more awake, alert, and responsive by the time he got to the floor from the emerg ency room. His antiepileptic medications have been restarted and he actually received the Tegretol n ow 200 mg twice daily. He was given Keppra 500 mg twice daily with Rocephin for his likely pneumonia , perhaps aspiration and did receive azithromycin as well. Past Medical History: Includes congestive heart failure, hypertension, COPD, and epilepsy. Past Surgical History: None. Allergies: NO KNOWN DRUG ALLERGIES. Home Medications: Amlodipine 5 mg daily, Coreg 3.125 mg twice daily, Lasix 40 mg daily, Lotrimin top ical ointment, and he should have been on Tegretol 200 mg twice daily, but is not taking it. Family History: Positive for stroke, diabetes, heart disease in multiple family members. Surgical History: None. Review of Systems: No recent fevers, chills, nausea, vomiting, arthralgias, myalgias, headache, weight change, rash, psy chiatric complaints, gastrointestinal, or genitourinary issues. Physical Examination: Vital Signs: Blood pressure 122/57, pulse 77, respiratory rate 18, temperature 97.6, oxygen saturati on 96% on room air. Weight 139 pounds, height 5 feet 4 inches, BMI 22.9. General: Mr. Weber is resting comfortably, in no acute distress. HEENT: Normocephalic, atraumatic. Sclerae anicteric. Oropharynx pink and moist. Neck: Supple. Chest: Clear. Heart: Regular. Extremities: Show no edema, cyanosis, or clubbing. Neurologic: Alert and oriented to situation, place, and person. Follows commands appropriately. Cr anial nerve examination shows no focal deficits 2 through 12. Motor is 5 strength. Strength is 5/5 proximally and distally. Coordination examination intact in the upper and lower extremities. Reflex es 1+ to 2+ in the upper and lower extremities and has good stance, stride, arm swing. Diagnostic Studies: His brain MRI shows moderate small-vessel ischemic disease. No acute ischemic o r hemorrhagic stroke. His CT scan is consistent with that. His carotid artery ultrasound shows smal l hard plaque in the left carotid bulb without evidence of hemodynamically significant stenosis. His echocardiogram showed ejection fraction 71%. This was a normal study, except for mild aortic regurg itation. His chest x-ray showed right-side aspiration. There was a repeat head CT scan done here to day that showed no acute changes, again consistent with moderate small-vessel ischemic disease. Assessment: Mr. Weber is a 54-year-old patient with multiple medical problems including epilepsy for which he is noncompliant with Tegretol 200 mg twice daily, also he has hypertension, aspiration pneum onia. Plan: 1.Tegretol 200 mg twice daily, Keppra 500 mg twice daily. 2.Continue with antibiotics for pneumonia as per primary team. 3.Continue with antihypertensive medications as indicated. 4.The patient should continue on DVT prophylaxis with Lovenox, also once discharged he may follow up in Dr[facility] 1 month later. OSMIN/BELKYS Voice ID: [id number] Report ID: [id number]
[2019-10-17 06:17] LABS: Absolute Lymphocytes (CBC) 1.7 K/uL (0.7-4.9); Hematocrit 38.3 % (39.6-49.0); Lymphocytes % 19.2 % (15.3-44.8); RBC Red Blood Cell Count 4.28 M/uL (4.33-5.43)
[2019-10-17 06:20] LABS: Albumin 3.2 g/dL (3.4-5.0); Bilirubin Total 0.4 mg/dL (0.2-1.0); Potassium 3.8 mmol/L (3.5-5.1); Protein, Total 6.8 g/dL (6.4-8.2)
[2019-10-17 06:34] VITALS: BMI 25.0
[2019-10-17] MEDS: CEFTRIAXONE/SWI 1gm 1 GM/10 ML SYR IV SCH (08:21)
[2019-10-17] MEDS: ENOXAPARIN 40 MG/0.4 ML SQ SCH (08:21)
[2019-10-17] MEDS: carBAMazepine 200 MG TAB PO SCH (08:21)
[2019-10-17] MEDS: carvediloL 3.125 MG TAB PO SCH (08:21)
[2019-10-17] MEDS: FUROSEMIDE 40 MG TABLET PO SCH (08:22)
[2019-10-17] MEDS: AMLODIPINE 5 MG TAB PO SCH (08:22)
[2019-10-17] MEDS: levETIRAcetam 500 MG TAB PO SCH (08:22)
[2019-10-17] MEDS: CLOTRIMAZOLE 1% CREAM 15 GM TOP SCH (08:23)
[2019-10-17] MEDS: DULERA 100/5 (MOMETASONE/FORMOTEROL) INHALER IH SCH (08:23)
[2019-10-17] MEDS ORDERED: POTASSIUM CL SA 10 MEQ TAB PO ONE (09:00)
--- NOTE | 2019-10-17 09:06 | EEG ---
CHART: [id number] TEST ID#: [id number] DATE OF STUDY: 10/16/2019 THE EEG WAS RECORDED PORTABLE IN THE PATIENTS ROOM ON A 17 CHANNEL MACHINE. ELECTRODES WERE APPLIED IN THE USUAL MANNER USING THE INTERNATIONAL 10-20 SYSTEM. THE WAKING BACKGROUND RHYTHM IN THIS RECORD CONSISTS OF VERY WELL DEVELOPED AND WELL ORGANIZED WAVES OF 9.5 HZ., MAXIMAL IN THE POSTERIOR HEAD REGIONS WHICH ATTENUATE NORMALLY WITH EYE OPENING. MODERATE VOLTAGE 3-4 HZ ACTIVITY EXPRESSED INTERMITTENTLY IN THE FRONTAL REGION. LOWVOLTAGE 18-22 HZ ACTIVITY IS EXPRESSED IN THE FRONTAL REGIONS. THERE ARE NO FOCAL OR LATERALIZING FEATURES. NO EPILEPTIFORM ACTIVITY APPEARS. SLEEP OCCURRED NATURALLY. IN ADDITION NORMAL SLEEP PATTERNS ARE PRESENT. HYPERVENTILATION WAS NOT PERFORMED. PHOTIC STIMULATION PRODUCED NO DRIVING BILATERALLY. IMPRESSION: THIS IS A MILDLY ABNORMAL ROUTINE AWAKE AND ASLEEP EEG DUE TO MILDLY SLOW ACTIVITY IN THE FRONTAL REGIONS. THIS IS A NON-SPECIFIC FINDING INDICATING A MILD DIFFUSE DISTURBANCE IN CEREBRAL ACTIVITY. NO EPILEPTIFORM ACTIVITY IS EXPRESSED.
[2019-10-17] MEDS: AZITHROMYCIN IV 500 MG in NA CHLORIDE 0.9% 250 ML IVPB SCH (11:00)
[2019-10-17 11:35] VITALS: O2SAT 95
[2019-10-17 15:42] VITALS: BP 146/71; TEMP 98
--- NOTE | 2019-10-17 21:45 | DS ---
Date of Discharge: 10/17/2019 Consultants: 1.Dr. Mckenzie with Neurology. 2.Dr. Sommer and Dr. Novak with Cardiology. Dr. De Paz with Pulmonology. Admitting Diagnoses: 1.Syncopal episode. 2.Acute respiratory failure with hypoxia. 3.Pneumonia right-sided likely aspiration type pneumonia. 4.Chronic obstructive pulmonary disease, chronic bronchitis. 5.Diastolic heart failure, chronic. 6.Essential hypertension. 7.Nicotine dependence with cigarette smoking. Discharge Diagnoses: 1.Syncope related to seizure episodes. 2.Acute seizures. 3.Acute respiratory failure with hypoxia, resolved. 4.Right lower lobe pneumonia secondary to aspiration. 5.Chronic obstructive pulmonary disease, chronic bronchitis. 6.Congestive heart failure, diastolic dysfunction. 7.Essential hypertension, stable. 8.Metabolic acidosis, resolved. 9.Nicotine dependence with cigarette smoking, counseled. Hospital Course: Patient is a 54-year-old male with past medical history of CHF, hypertension, came in with hypoxia, nonresponsiveness. Patient was found to [place] [address], found to have pneumonia on chest x-ray. This was thought to be aspiration due to his synco pal episode. Syncope was worked up. MRI of the brain showed old lacunar infarcts. He did not have any acute hemorrhage or infarct. This was unknown to the patient. He was counseled. Patient was se en by Cardiology and Neurology for his workup. Apparently, he does have a history of seizures, but t he patient has not been compliant with his medications. He takes Tegretol, has not filled his prescr iption since April. Patient was counseled regarding compliance with his medications as well as s eizure precautions including no swimming, driving or intended heights or operating heavy machinery. Patient was loaded with Keppra and was seen by Dr. Mckenzie with Neurology. EEG was also done, which was abnormal showed mildly abnormal routine, awake and asleep due to mildly slow activity in the fro ntal region indicating mild diffuse disturbance in cerebral activity. No epileptiform activity is ex pressed. Overall patient did well. His cultures were negative. His echocardiogram did not show any abnormalities other than some mild aortic regurg. His ejection fraction was normal. Dr. Novak did not recommend any further cardiac workup. Carotid artery ultrasound showed some heart plaquing, but no significant stenosis. MRI of the brain as mentioned was negative. Overall, patient did well. Anuj barragan did have 1 episode of seizure while in the hospital. He did well after being loaded with Keppra. No further seizure episodes. He was then cleared for discharge and sent home in a stable condition. Activity: Seizure precautions. Diet: Heart healthy. Followup: Follow up with PCP in 2-3 days. Follow up with neurologist, Dr. Mckenzie in 1 month. Fol low up with programmer or analyst, Dr. De Paz, in 2 weeks. Follow up with supervisor scenic arts, Dr. Sommer, in 2 weeks. Return to ER for worsening condition. Medications: As per medication reconciliation list. Physical Examination: General: Awake, alert, and oriented, no acute distress. CV: S1, S2. Regular rate and rhythm. Respiratory: Moving air well bilaterally. Abdomen: Abdomen is soft, nontender, nondistended. Positive bowel sounds. Extremities: No clubbing, cyanosis, or edema. Neurologic: Nonfocal. Total time spent discharging patient was 45 minutes. /BELKYS Voice ID: [id number] Report ID: [id number]
== END 2019-10-17 16:56 | disposition home health service (06) | DRG 177 ==
LOC: ER 07:34 → ERHOLD 09:27 → 4TH 10:52
PROVIDERS: ADMIT Family Medicine; ATTEND Family Medicine
DX: J69.0 Pneumonitis due to inhalation of food and vomit (principal); J96.01 Acute respiratory failure with hypoxia; I50.32 Chronic diastolic (congestive) heart failure; E87.2 Acidosis; R56.9 Unspecified convulsions; R55 Syncope and collapse; J44.9 Chronic obstructive pulmonary disease, unspecified; I11.0 Hypertensive heart disease with heart failure; I25.10 Atherosclerotic heart disease of native coronary artery without angina pectoris; F17.210 Nicotine dependence, cigarettes, uncomplicated; Z91.14 Patient's other noncompliance with medication regimen
CPT/HCPCS: 36415; 70450; 70551; 71045; 80048; 80053; 80076; 80307; 80320; 81003; 82550; 82553; 82805; 82947; 83605; 83690; 83735; 83880; 84100; 84145; 84146; 84484; 85025; 85610; 85730; 87040; 87804; 93005; 93306; 93880; 94760; 95816; 96361; 96365; 96366; 96375; 97112; 97116; 97161; 99285; J0456; J0696; J1650; J1953; J2930; J7030; J7606

== ENCOUNTER 2020-07-15 16:04 | Observation (INO) | payer OTHER ==
--- OUTSIDE RECORDS SUMMARY | 2020-07-15 16:07 | XMS REPORT | Continuity of Care Document ---
:1965 Author Organization [facility] t Address [address] [place] [address] Care Team Providers Name Role Phone Ai Olsen MD Attending Clinician Tete RUBIO Attending Clinician Ana Lilia Mesa MD Attending Clinician AI OLSEN Attending Clinician Unavailable ANA LILIA MESA Admitting Clinician Unavailable Payers Payer Name Policy Type Policy Effective Date Expiration Date Sour ce Number [facility] [id number] 2005 EDWIN Noble [id number] 2005-P 00:00:00 - Medical [facility] MEDICAIDMEDICAID OF [id number] 2019 EDWIN Noble [id number] 2019 00:00:00 - [facility] Problems Condition Condition Condition Status Onset Resolution Last Treating Co mments Source Name Details Category Date Date Treatment Clinician Date Seizure Seizure Disease Active [facility] 6-18 [facility] - 00:00: Medical [address] [place] [address] Allergies, Adverse Reactions, Alerts This patient has no known allergies or adverse reactions. Social History Social Habit Start Date Stop Date Quantity Comments Source Sex Assigned At [facility] Medications Ordered Filled Start Stop Current Ordering Indication Dosage Frequency Signature Comments Components Source Medication Medication Date Date Medication? Clinician (SIG) Name Name aspirin 81 2020-0 Yes 81mg QD Take [address] MG EC 6-20 by mouth [facility] - tablet 13:17: daily. [address] phenytoin 2019-0 Yes 300mg QD Take [address] extended 6-20 mg by [facility] - (DILANTIN) 13:17: mouth Medica l 300 MG ER 37 daily. [place] capsule furosemide 2020-0 Yes 40mg QD Take [address] (LASIX) 40 6-20 by mouth [facility] - MG tablet 13:17: daily. Medica [address] OLANZapine 2020-0 Yes 5mg QD Take [address] (ZYPREXA) 6-20 by mouth [facility] - 2.5 MG 13:17: nightly. Medical tablet 37 [place] QUEtiapine 2020-0 Yes 200mg Q.5D Take [address] (SEROQUEL) 6-20 mg by [facility] - 200 MG 13:17: mouth 2 Medical tablet 37 (two) Center times daily. amLODIPine 2020-0 Yes 5mg QD Take [address] (NORVASC) 5 6-20 by mouth [facility] - MG tablet 13:17: daily. [facility] [place] [address] carvediloL 2020-0 Yes 3.125mg Take 3.[address] (COREG) 6-20 mg by [facility] - 3.125 MG 13:17: mouth 2 Medica l tablet 37 (two) Center times daily with breakfast and dinner. cholecalcif 2020-0 Yes 5000U QD Take 5,[address] stefanie, 6-20 Units by [facility] - vitamin D3, 13:17: mouth Medic al (VITAMIN 37 daily. [place] D3) 125 mcg (5,000 unit) capsule lisinopriL 2020-0 Yes 10mg QD Take [address] (PRINIVIL,Z 6-20 by mouth [facility] - ESTRIL) 10 13:17: daily. Medic al MG tablet [address] [place] [address] naltrexone 2020-0 Yes 25mg QD Take [address] (DEPADE) 50 6-20 by mouth [facility] - mg tablet 13:17: daily. [facility] [place] [address] divalproex 2020-0 2020- No 500mg Q.5D Take [address] (DEPAKOTE) 6-20 06-20 mg by [facility] - 500 MG EC 09:18: 00:00 mouth 2 Medi faith tablet 21 :00 (two) Center times daily. carBAMazepi 2020-0 2020- No 200mg Q.5D Take [address] ne 6-20 06-20 mg by [facility] - (TEGRETOL) 09:18: 00:00 mouth 2 Med ical 200 mg 21 :00 (two) Center tablet times daily. levETIRAcet Yes Seizure 500mg Q.5D Take [address] am (KEPPRA) 6-20 (HCC) tablet [facility] - 500 MG 00:00: (500 mg Medical tablet 00 total) by Center mouth 2 (two) times daily. Vital Signs Vital Name Observation Time Observation Value Comments Source Systolic blood 2020-01-31 07:15:00 161 mm[Hg] [facility] Diastolic blood 2020-01-31 07:15:00 75 mm[Hg] [facility] Heart rate 2020-01-31 07:15:00 59 /min [facility] Body temperature 2020-01-31 07:15:00 36.28 [facility] Respiratory rate 2020-01-31 07:15:00 18 /min [facility] Oxygen saturation in 2020-01-31 07:15:00 96 /min [facility] - Arterial blood by Medical Ce nter Pulse oximetry Body height 2020-01-29 13:46:00 165.1 cm [facility] Body weight 2020-01-29 13:46:00 68.04 kg [facility] BMI 2020-01-29 13:46:00 24.96 kg/m2 [facility] Procedures Procedure Date / Time Performed Performing Clinician [facility] e RHYTHM STRIP - SCAN 2020-02-03 12:50:22 Provider, Default [facility] RHYTHM STRIP - SCAN 2020-02-02 11:50:34 Provider, Default [facility] BASIC METABOLIC PANEL 2020-01-31 05:27:00 Maribell Epstein [address] CBC W/PLT COUNT & AUTO 2020-01-31 05:27:00 Anabelle Mesa [facility] EEG AWAKE AND DROWSY 2020-01-30 10:24:00 María Valladares [facility] BASIC METABOLIC PANEL 2020-01-30 02:39:00 Maribell Epstein [place] [address]) [facility] HEPATIC FUNCTION PANEL 2020-01-30 02:39:00 [facility]ell Epstein [facility] MAGNESIUM 2020-01-30 02:39:00 Maribell Epstein [facility] PHOSPHORUS 2020-01-30 02:39:00 Maribell Epstein [facility] CBC (HEMOGRAM ONLY) 2020-01-30 02:39:00 Maribell Epstein [facility] URINALYSIS W/ REFLEX 2020-01-29 21:07:00 Maribell Epstein [facility] URINE CULTURE [facility] Plan of Care Planned Activity Planned Date Details Comments Source Future Scheduled 2020-04-[address] [facility] - Test 00:00:00 (#1) [code = [facility] INFLUENZA VACCINE (#1)] Future Scheduled 2006-10-[address] [facility] - Test 00:00:00 WELLNESS (YEAR 2 or [facility] FIRST YEAR if no IPPE) [code = MEDICARE ANNUAL WELLNESS (YEAR 2 or FIRST YEAR if no IPPE)] Future Scheduled [address] - Test 00:00:00 (procedure) [code = [facility] [id number]] Future Scheduled [address] - Test 00:00:00 malignant neoplasm Medical C enter of colon (procedure) [code = 589294474] Results Test Description Test Time Test Comments Results Result Comments Source Basic metabolic panel 2020-01-31 06:53:00 Test Item Value Reference Range Interpretation Comme nts Sodium (test code = 138 meq/L 278-022 1540-2) Potassium (test code = 4.0 meq/L 3.5-5.1 2823-3) Chloride (test code = 107 meq/L 98-107 2075-0) CO2 (test code = 8-9) 24 meq/L 22-29 BUN (test code = 3094-0) 17 mg/dL 7-21 Creatinine (test code = 1.04 mg/dL 0.57-1.25 2160-0) Glucose (test code = 77 mg/dL 70-105 2345-7) Calcium (test code = 8.4 mg/dL 8.4-10.2 89758-7) EGFR (test code = INSUFFICIE NT CLINICAL DATA 43743-3) TO CALCULATE ES TIMATED GFR. JUAN ANTONIO (test code = JUAN ANTONIO) Rapier Insertion Loom Fixer ID - ROLAND Buchanan [facility] [id number] 06:53:00 Test Item Value Reference Range Interpretation Comments SODIUM (BEAKER) (test 138 meq/L 136-145 code = 381) POTASSIUM (BEAKER) 4.0 meq/L 3.5-5.1 (test code = 379) CHLORIDE (BEAKER) 107 meq/L 98-107 (test code = 382) CO2 (BEAKER) (test 24 meq/L 22-29 code = 355) BLOOD UREA NITROGEN 17 mg/dL 7-21 (BEAKER) (test code = 354) CREATININE (BEAKER) 1.04 mg/dL 0.57-1.25 (test code = 358) GLUCOSE RANDOM 77 mg/dL 70-105 (BEAKER) (test code = 652) CALCIUM (BEAKER) 8.4 mg/dL 8.4-10.2 (test code = 697) EGFR (BEAKER) (test INSUFFIC IENT CLINICAL code = 1092) DATA TO CALCULA TE ESTIMATED GFR. Rapier Insertion Loom Fixer ID - ROLAND MCBC with platelet count + automated [id number] 05:46:00 Test Item Value Reference Range Interpretation Comments WBC (test code = 6690-2) 8.0 3.5- 10.5 K/L RBC (test code = 789-8) 4.18 4.63- 6.08 M/L L MCHC (test code = 786-4) 31.9 32.3- 36.5 GM/DL L Hematocrit (test code = 4544-3) 38.3 % 40.1-51 L MCV (test code = 787-2) 91.6 fL 79-92.2 MCH (test code = 785-6) 29.2 pg 25.7-32.2 RDW (test code = 788-0) 13.2 % 11.6-14.4 Platelets (test code = 777-3) 150 150- 450 K/CU MM MPV (test code = 52668-6) 10.6 fL 9.4-12.4 nRBC (test code = 413) 0 0- 0 /100 WBC % Neutros (test code = 429) 67 % % Lymphs (test code = 430) 15 % % Monos (test code = 431) 9 % % Eos (test code = 432) 8 % % Baso (test code = 437) 1 % # Neutros (test code = 670) 5.30 1.78- 5.38 K/L # Lymphs (test code = 414) 1.18 1.32- 3.57 K/L L # Monos (test code = 415) 0.73 0.30- 0.82 K/L # Eos (test code = 416) 0.67 0.04- 0.54 K/L H # Baso (test code = 417) 0.05 0.01- 0.08 K/L Immature Granulocytes-Relative 0 % 0-1 (test code = 2801) Lab Interpretation (test code = Abnormal 12980-3) [facility] W/PLT COUNT & AUTO [id number] 05:46:00 Test Item Value Reference Range Interpretation Comments WHITE BLOOD CELL COUNT (BEAKER) 8.0 K/ L 3.5-10.5 (test code = 775) RED BLOOD CELL COUNT (BEAKER) 4.18 M/ L 4.63-6.08 L (test code = 761) HEMOGLOBIN (BEAKER) (test code = 12.2 GM/DL 13.7-17.5 L 410) HEMATOCRIT (BEAKER) (test code = 38.3 % 40.1-51.0 L 411) MEAN CORPUSCULAR VOLUME (BEAKER) 91.6 fL 79.0-92.2 (test code = 753) MEAN CORPUSCULAR HEMOGLOBIN 29.2 pg 25.7-32.2 (BEAKER) (test code = 751) MEAN CORPUSCULAR HEMOGLOBIN CONC 31.9 GM/DL 32.3-36.5 L (BEAKER) (test code = 752) RED CELL DISTRIBUTION WIDTH 13.2 % 11.6-14.4 (BEAKER) (test code = 412) PLATELET COUNT (BEAKER) (test 150 K/CU MM 150-450 code = 756) MEAN PLATELET VOLUME (BEAKER) 10.6 fL 9.4-12.4 (test code = 754) NUCLEATED RED BLOOD CELLS 0 /100 WBC 0-0 (BEAKER) (test code = 413) NEUTROPHILS RELATIVE PERCENT 67 % (BEAKER) (test code = 429) LYMPHOCYTES RELATIVE PERCENT 15 % (BEAKER) (test code = 430) MONOCYTES RELATIVE PERCENT 9 % (BEAKER) (test code = 431) EOSINOPHILS RELATIVE PERCENT 8 % (BEAKER) (test code = 432) BASOPHILS RELATIVE PERCENT 1 % (BEAKER) (test code = 437) NEUTROPHILS ABSOLUTE COUNT 5.30 K/ L 1.78-5.38 (BEAKER) (test code = 670) LYMPHOCYTES ABSOLUTE COUNT 1.18 K/ L 1.32-3.57 L (BEAKER) (test code = 414) MONOCYTES ABSOLUTE COUNT (BEAKER) 0.73 K/ L 0.30-0.82 (test code = 415) EOSINOPHILS ABSOLUTE COUNT 0.67 K/ L 0.04-0.54 H (BEAKER) (test code = 416) BASOPHILS ABSOLUTE COUNT (BEAKER) 0.05 K/ L 0.01-0.08 (test code = 417) IMMATURE GRANULOCYTES-RELATIVE 0 % 0-1 PERCENT (BEAKER) (test code = 2801) EEG AWAKE AND [id number] 12:42:00Reason for exam:->se[facility] REPORT DATE(s) OF TEST: 01-30-20DATE OF REPORT: 01-30-20 ACC: [id number]: Start time: 0947hrsStop time: 1008hrs ICD-10: R56.9CPT Code: 95891 HISTORY: A 54yo right handed male with PMH of seizure presented to an OSH after having had 2 generalized shaking seizureslast night and this morning. The etiology of his epilepsy is unknown. Denies recent fever, URI symptoms, alcohol or drugs use or trauma. MEDICATIONS: Levetiracetam, Phenytoin, Seroquel, Zyprexa. TECHNICAL SUMMARY: This is a digital video EEG recorded with 32 input channels reviewed with bipolar and r eferential montages using the modified combinatorial system nomenclature. DESCRIPTION OF RECORD: During the maximally alert state a 7-8 Hz posterior dominant rhythm was seen that was symmetric, reactive to eye opening and moderately well regulated. More anteriorly, low voltage frontocentral beta pred ominated. Drowsiness was characterized by alpha attenuation and increased frontocentral theta. Stage 2 sleep was reached characterized by symmetric sleep spindles and K-complexes. HV: Hyperventilation was not performed. PHOTIC STIMULATION: Photic stimulation was not done VIDEO EVENTS RECORDED: None ELECTROCARDIOGRAM EVENTS: Normal Sinus Rhythm IMPRESSION: Abnormal Awake and Asleep EEG 1. Posterior background slowingCLINICAL CORRELATION: The slowing seen is consistent with a mild degree of encephalopathy. An EEG without epileptiform discharges does not exclude the possibility of epilepsy. If the clinical suspicion of epilepsy remains, consider additional EEG recordings. Marleny Tee MDEpilepsy Fellow I certify that I have reviewed the entire EEG with the fellow, read and edited the report above and agree with the conclusions. Andrei Mccain M.D., FACMIR, FAAN, FAESProfessor of Neurology, [facility] HospitalDirector, [facility] Epilepsy CenterAshtabula [facility], [facility] Neurophysiology Lab EEG AWAKE AND [id number] 12:42:00Interface, External Ris In - 01/30/2020 12:42 PM CDTCH[facility] Video EEG REPORT DATE(s) OF TEST: 01-30-20DATE OF REPORT: 01-30-20 ACC: [id number]: 2094 Start time: 0947hrsStop time: 1008hrs ICD-10: R56.9CPT Code: 76344 HISTORY: A 54yo right handed male with PMH [facility] had 2 generalized shaking seizures last night and this morning. The etiology of his epilepsy is unknown. Denies recent fever, URI symptoms, alcohol or drugs use or trauma. MEDICATIONS: Levetiracetam, Phenytoin, Seroquel, Zyprexa. TECHNICAL SUMMARY: This is a digital video EEG recorded with 32 input channels reviewed with bipolar and referential montages using the modified combinatorial system nomenclature. DESCRIPTION OF RECORD: During the maximally alert state a 7-8 Hz posteriordominant rhythm was seen that was symmetric, reactive to eye opening and moderately well regulated.More anteriorly, low voltage frontocentral beta predominated. Drowsiness was characterized by alphaattenuation and increased frontocentral theta. Stage 2 sleep was reached characterized by symmetric sleep spindles and K-complexes. HV: Hyperventilation was not performed. PHOTIC STIMULATION: Photic stimulation was not done VIDEO EVENTS RECORDED: None ELECTROCARDIOGRAM EVENTS: Normal Sinus RhythmIMPRESSION: Abnormal Awake and Asleep EEG 1. Posterior background slowingCLINICAL CORRELATION: The slowing seen is consistent with a mild degree of encephalopathy. An EEG without epileptiform discharges does not exclude the possibility of epilepsy. If the clinical suspicion of epilepsy remains, consider additional EEG recordings. Marleny Tee MDEpilepsy Fellow I certify that I have reviewed the entire EEG with the fellow, read and edited the report above and agree with the conclusions. Andrei Mccain M.D., FACMIR, FAAN, FAESProfessor of Neurology, [facility] HospitalDirector, [facility] Epilepsy [facility] Neurophysiology Lab [facility]BASI METABOL[facility] PANEL 2020-01-30 03:13:00 Test Item Value Reference Range Interpretation Comments SODIUM (BEAKER) (test 139 meq/L 136-145 code = 381) POTASSIUM (BEAKER) 3.9 meq/L 3.5-5.1 (test code = 379) CHLORIDE (BEAKER) 108 meq/L 98-107 H (test code = 382) CO2 (BEAKER) (test 26 meq/L 22-29 code = 355) BLOOD UREA NITROGEN 15 mg/dL 7-21 (BEAKER) (test code = 354) CREATININE (BEAKER) 1.06 mg/dL 0.57-1.25 (test code = 358) GLUCOSE RANDOM 82 mg/dL 70-105 (BEAKER) (test code = 652) CALCIUM (BEAKER) 8.1 mg/dL 8.4-10.2 L (test code = 697) EGFR (BEAKER) (test INSUFFIC IENT CLINICAL code = 1092) DATA TO CALCULA TE ESTIMATED GFR. Rapier Insertion Loom Fixer ID - DBHepatic function [id number] 03:12:00 Test Item Value Reference Range Interpretation Comments Protein, Total (test code = 6.2 6.0- 8.3 gm/dL 2885-2) Albumin (test code = 3.3 g/dL 3.5-5 L 03860-6) Total Bilirubin (test code = 0.5 mg/dL 0.2-1.2 1974-2) Bilirubin, Direct (test code 0.2 mg/dL 0.1-0.5 = 1967-7) Alkaline Phosphatase (test 73 U/L 40-150 code = 6768-6) AST (test code = 1920-8) 20 U/L 5-34 ALT (test code = 1742-6) 20 U/L 6-55 JUAN ANTONIO (test code = JUAN ANTONIO) Rapier Insertion Loom Fixer ID - DB Lab Interpretation (test Abnormal code = 46148-8) [facility] 03:12[facility]00 Test Item Value Reference Range Interpretation Comments Magnesium (test code = 2.0 mg/dL 1.6-2.6 62503-5) JUAN ANTONIO (test code = JUAN ANTONIO) Rapier Insertion Loom Fixer ID - DB Lab Interpretation (test Normal code = 36281-9) [facility] 03:12:00 Test Item Value Reference Range Interpretation Comments Phosphorus (test code = 3.2 mg/dL 2.3-4.7 2777-1) JUAN ANTONIO (test code = JUAN ANTONOI) Rapier Insertion Loom Fixer ID - DB Lab Interpretation (test Normal code = 13155-5) [facility]OSPH[facility]US2020-06-19 03:12:00 Test Item Value Reference Range Interpretation Comments PHOSPHORUS (BEAKER) (test code = 3.2 mg/dL 2.3-4.7 604) [employer]ier Insertion Loom Fixer ID - [id number] 03:12:00 Test Item Value Reference Range Interpretation Comments MAGNESIUM (BEAKER) (test code = 2.0 mg/dL 1.6-2.6 627) [employer] Insertion Loom Fixer ID - DBHEPATIC FUNCTION [id number] 03:12:00 Test Item Value Reference Range Interpretation Comments TOTAL PROTEIN (BEAKER) (test code = 6.2 gm/dL 6.0-8.3 770) ALBUMIN (BEAKER) (test code = 1145) 3.3 g/dL 3.5-5.0 L BILIRUBIN TOTAL (BEAKER) (test code 0.5 mg/dL 0.2-1.2 = 377) BILIRUBIN DIRECT (BEAKER) (test 0.2 mg/dL 0.1-0.5 code = 706) ALKALINE PHOSPHATASE (BEAKER) (test 73 U/L 40-150 code = 346) AST (SGOT) (BEAKER) (test code = 20 U/L 5-34 353) ALT (SGPT) (BEAKER) (test code = 20 U/L 6-55 347) [facility]ier Insertion Loom Fix[id number]2020-01-30 02:49:00 Test Item Value Reference Range Interpretation Comments WBC (test code = 6690-2) 8.5 3.5- 10.5 K/L RBC (test code = 789-8) 4.07 4.63- 6.08 M/L L MCHC (test code = 786-4) 33.2 32.3- 36.5 GM/DL L Hematocrit (test code = 4544-3) 36.8 % 40.1-51 L MCV (test code = 787-2) 90.4 fL 79-92.2 MCH (test code = 785-6) 30.0 pg 25.7-32.2 RDW (test code = 788-0) 13.1 % 11.6-14.4 Platelets (test code = 777-3) 146 150- 450 K/CU MM L MPV (test code = 74988-4) 10.5 fL 9.4-12.4 nRBC (test code = 413) 0 0- 0 /100 WBC Lab Interpretation (test code = Abnormal 16210-3) [facility] (HEMOGRAM ONLY)2020-01-30 02:49:00 Test Item Value Reference Range Interpretation Comments WHITE BLOOD CELL COUNT (BEAKER) 8.5 K/ L 3.5-10.5 (test code = 775) RED BLOOD CELL COUNT (BEAKER) 4.07 M/ L 4.63-6.08 L (test code = 761) HEMOGLOBIN (BEAKER) (test code = 12.2 GM/DL 13.7-17.5 L 410) HEMATOCRIT (BEAKER) (test code = 36.8 % 40.1-51.0 L 411) MEAN CORPUSCULAR VOLUME (BEAKER) 90.4 fL 79.0-92.2 (test code = 753) MEAN CORPUSCULAR HEMOGLOBIN 30.0 pg 25.7-32.2 (BEAKER) (test code = 751) MEAN CORPUSCULAR HEMOGLOBIN CONC 33.2 GM/DL 32.3-36.5 (BEAKER) (test code = 752) RED CELL DISTRIBUTION WIDTH 13.1 % 11.6-14.4 (BEAKER) (test code = 412) PLATELET COUNT (BEAKER) (test 146 K/CU MM 150-450 L code = 756) MEAN PLATELET VOLUME (BEAKER) 10.5 fL 9.4-12.4 (test code = 754) NUCLEATED RED BLOOD CELLS 0 /100 WBC 0-0 (BEAKER) (test code = 413) Urinalysis w/Microscopic + Reflex to [id number] 22:21:00 Test Item Value Reference Range Interpretation Comments Color, UA (test code = Light Yellow 5778-6) Clarity, UA (test code Clear = 5767-9) Specific [place], UA 1.015 1.001-1.035 (test code = 5811-5) pH, UA (test code = 7.0 5.0-8.0 5803-2) Protein, UA (test code Negative Negative = 70608-4) Glucose, UA (test code Negative Negative = 365) Ketones, UA (test code Negative Negative = 2514-8) Bilirubin, UA (test Negative Negative code = 95103-9) Blood, UA (test code = Negative Negative 94988-1) Nitrite, UA (test code Negative Negative = 5802-4) Leukocytes, UA (test Negative Negative code = 5799-2) Urobilinogen, UA (test 0.2 mg/dL 0.2-1 code = 84580-6) RBC, UA (test code = <1 /HPF 68664-8) WBC, UA (test code = 1 /HPF 5821-4) Squam Epithel, UA (test <1 /HPF code = 36058-1) Specimen Source (test code = 2795) JUAN ANTONIO (test code = JUAN ANTONIO) Rapier Insertion Loom Fixer ID - [auto]Rapier Insertion Loom Fixer ID - tech [facility]/ REFLEX URINE [id number] 22:21:00 Test Item Value Reference Range Interpretation Comments COLOR (BEAKER) (test code = 470) Light Yellow CLARITY (BEAKER) (test code = Clear 469) SPECIFIC GRAVITY UA (BEAKER) 1.015 1.001-1.035 (test code = 468) PH UA (BEAKER) (test code = 467) 7.0 5.0-8.0 PROTEIN UA (BEAKER) (test code = Negative Negative 464) GLUCOSE UA (BEAKER) (test code = Negative Negative 365) KETONES UA (BEAKER) (test code = Negative Negative 371) BILIRUBIN UA (BEAKER) (test code Negative Negative = 462) BLOOD UA (BEAKER) (test code = Negative Negative 461) NITRITE UA (BEAKER) (test code = Negative Negative 465) LEUKOCYTE ESTERASE UA (BEAKER) Negative Negative (test code = 466) UROBILINOGEN UA (BEAKER) (test 0.2 mg/dL 0.2-1.0 code = 463) RBC UA (BEAKER) (test code = < /HPF 519) WBC UA (BEAKER) (test code = 1 /HPF 520) SQUAMOUS EPITHELIAL (BEAKER) < /HPF (test code = 516) SOURCE(BEAKER) (test code = 2795) Rapier Insertion Loom Fixer ID - [auto]Rapier Insertion Loom Fixer ID - tech
--- OUTSIDE RECORDS SUMMARY | 2020-07-15 16:07 | XMS REPORT | Clinical Summary ---
:[address] [facility] Address [address] [place] [address] Care Team Providers Name Role Phone Unavailable Primary Care Provider Unavailable Allergies No Known Allergies Medications Medication Sig Dispensed Refills Start Date End Date Status aspirin 81 MG EC Take 81 mg by 0 Active tablet mouth daily. phenytoin extended Take 300 mg by 0 Active (DILANTIN) 300 MG mouth daily. ER capsule furosemide (LASIX) Take 40 mg by 0 Active 40 MG tablet mouth daily. OLANZapine Take 5 mg by 0 Active (ZYPREXA) 2.5 MG mouth nightly. tablet QUEtiapine Take 200 mg by 0 Acti ve (SEROQUEL) 200 MG mouth 2 (two) tablet times daily. amLODIPine Take 5 mg by 0 Active (NORVASC) 5 MG mouth daily. tablet carvediloL (COREG) Take 3.125 mg 0 Active 3.125 MG tablet by mouth 2 (two) times daily with breakfast and dinner. cholecalciferol, Take 5,000 0 Ac tive vitamin D3, Units by mouth (VITAMIN D3) 125 daily. mcg (5,000 unit) capsule lisinopriL Take 10 mg by 0 Activ e (PRINIVIL,ZESTRIL) mouth daily. 10 MG tablet naltrexone Take 25 mg by 0 Activ e (DEPADE) 50 mg mouth daily. tablet levETIRAcetam Take 1 tablet 60 tablet 0 01/31/2020 A ctive (KEPPRA) 500 MG (500 mg total) tabletIndications: by mouth 2 Seizure (HCC) (two) times daily. divalproex Take 500 mg by 0 Disc ontinued (DEPAKOTE) 500 MG mouth 2 (two) 0 (Stop Taking at EC tablet times daily. Dischar ge) carBAMazepine Take 200 mg by 0 D iscontinued (TEGRETOL) 200 mg mouth 2 (two) 0 (Stop Taking at tablet times daily. Dischar ge) Active Problems Problem Noted Date Seizure 01/29/2020 Encounters Date Type Specialty Care Team Description 01/29/2020 - Hospital Encounter General Internal Marcus Olsen ([facility]) 01/31/2020 Medicine MD Ai (Primary Dx) Maribell Epstein MD Bañuelos, Anabelle Hanson MD 01/29/2020 Travel after 07/15/2019 Social History Tobacco Use Types Packs/Day Years Used Date Never Assessed Sex Assigned at Date Recorded Not on file Last Filed Vital Signs Vital Sign Reading Time Taken Comments Blood Pressure 161/75 01/31/2020 7:15 AM CDT Pulse 59 01/31/2020 7:15 AM CDT Temperature 36.3 C (97.3 F) 01/31/2020 7:15 AM CDT Respiratory Rate 18 01/31/2020 7:15 AM CDT Oxygen Saturation 96% 01/31/2020 7:15 AM CDT Inhaled Oxygen Concentration - - Weight 68 kg (150 lb) 01/29/2020 1:46 PM CDT Height 165.1 cm (5' 5") 01/29/2020 1:46 PM CDT Body Mass Index 24.96 01/29/2020 1:46 PM CDT Plan of Treatment Health Maintenance Due Date Last Done Comments COLON CANCER SCREENING COLONOSCOPY 1965 LIPID PANEL 1999 MEDICARE ANNUAL WELLNESS (YEAR 2 or FIRST YEAR if no 10/12/2006 IPPE) INFLUENZA VACCINE (#1) 2020 Procedures Procedure Name Priority Date/Time Associated Comments Diagnosis RHYTHM STRIP - SCAN 02/03/2020 12:50 PM CDT RHYTHM STRIP - SCAN 02/02/2020 11:50 AM CDT CBC W/PLT COUNT & Routine 01/31/2020 5:27 Result s for this AUTO DIFFERENTIAL AM CDT procedure are in the results section. CBC W/PLT COUNT & Routine 01/31/2020 5:27 Result s for this AUTO DIFFERENTIAL AM CDT procedure are in the results section. BASIC METABOLIC PANEL Routine 01/31/2020 5:27 Re sults for this (7) AM CDT procedure are i n the results section. EEG AWAKE AND DROWSY Routine 01/30/2020 10:24 Res ults for this AM CDT procedure are i n the results section. CBC (HEMOGRAM ONLY) Routine 01/30/2020 2:39 Resu lts for this AM CDT procedure are i n the results section. PHOSPHORUS Routine 01/30/2020 2:39 Results for this AM CDT procedure are i n the results section. MAGNESIUM Routine 01/30/2020 2:39 Results for this AM CDT procedure are i n the results section. HEPATIC FUNCTION Routine 01/30/2020 2:39 Results for this PANEL AM CDT procedure are i n the results section. BASIC METABOLIC PANEL Routine 01/30/2020 2:39 Re sults for this (7) AM CDT procedure are i n the results section. URINALYSIS W/ REFLEX Routine 01/29/2020 9:07 Res ults for this URINE CULTURE PM CDT procedure are in the results section. after 07/15/2019 Results RHYTHM STRIP - SCAN (02/03/2020 12:50 PM CDT)Only the most recent of2 results within the time period is included. Narrative Performed At This result has an attachment that is no t available. CBC with platelet count + automated diff (01/31/2020 5:27 AM CDT) Pathologist Sig nature WBC 8.0 3.5 - 10.5 [facility] K/L [facility] RBC 4.18 (L) 4.63 - 6.08 [facility] M/L [facility] Hemoglobin 12.2 (L) 13.7 - 17.5 [facility] GM/DL [facility] Hematocrit 38.3 (L) 40.1 - 51.0 % [facility] MCV 91.6 79.0 - 92.2 fL [facility] MCH 29.2 25.7 - 32.2 pg [facility] MCHC 31.9 (L) 32.3 - 36.5 [facility] GM/DL [facility] RDW 13.2 11.6 - 14.4 % [facility] Platelets 150 150 - 450 K/CU [facility] MPV 10.6 9.4 - 12.4 fL [facility] nRBC 0 0 - 0 /100 WBC [facility] % Neutros 67 % [facility] % Lymphs 15 % [facility] % Monos 9 % [facility] % Eos 8 % [facility] % Baso 1 % [facility] # Neutros 5.30 1.78 - 5.38 [facility] # Lymphs 1.18 (L) 1.32 - 3.57 [facility] # Monos 0.73 0.30 - 0.82 [facility] # Eos 0.67 (H) 0.04 - 0.54 [facility] # Baso 0.05 0.01 - 0.08 [facility] Immature 0 0 - 1 % [facility] Granulocytes-[facility] Specimen Blood Performing Organization Address City/State/Zipcode Phone Number [facility] [address] [place] [address] CENTER Basic metabolic panel (01/31/2020 5:27 AM CDT)Only the most recent of2 results within the time period is included. Sodium 138 136 - 145 [facility] meq/L [facility] Potassium 4.0 3.5 - 5.1 [facility] meq/L [facility] Chloride 107 98 - 107 meq/L [facility] CO2 24 22 - 29 meq/L [facility] BUN 17 7 - 21 mg/dL [facility] Creatinine 1.04 0.57 - 1.25 [facility] mg/dL [facility] Glucose 77 70 - 105 mg/dL [facility] Calcium 8.4 8.4 - 10.2 [facility] mg/dL [facility] EGFR Comment: INSUFFICIENT [facility] CLINICAL DATA TO [facility] CALCULATE ESTIMATED [facility] GFR. Specimen Blood Narrative Performed At Flight Physician [facility] Performing Organization Address City/State/Zipcode Phone Number [facility] [address] [place] [address] CENTER EEG AWAKE AND DROWSY (01/30/2020 10:24 AM CDT) Specimen Narrative Performed At [facility] Video EEG REPORT GE RIS DATE(s) OF TEST: 01-30-20 DATE OF REPORT: 01-30-20 ACC: [id number] EE Start time: 0947hrs Stop time: 1008hrs ICD-10: R56.9 CPT Code: 91912 HISTORY: A 54yo right handed male with P MH of seizure presented to an OSH after having had 2 generalized shaki ng seizures last night and this morning. The etiology of his epilep sy is unknown. Denies recent fever, URI symptoms, alcohol or drugs us e or trauma. MEDICATIONS: Levetiracetam, Phenytoin, S eroquel, Zyprexa. TECHNICAL SUMMARY: This is a digital video EEG recorded wit h 32 input channels reviewed with bipolar and referential montages us ing the modified combinatorial system nomenclature. DESCRIPTION OF RECORD: During the maximally alert state a 7-8 H z posterior dominant rhythm was seen that was symmetric, reactive to eye opening and moderately well regulated. More anteriorly, low v oltage frontocentral beta predominated. Drowsiness was character ized by alpha attenuation and increased frontocentral theta. Stage 2 s leep was reached characterized by symmetric sleep spindle s and K-complexes. HV: Hyperventilation was not performed. PHOTIC STIMULATION: Photic stimulation w as not done VIDEO EVENTS RECORDED: None ELECTROCARDIOGRAM EVENTS: Normal Sinus R hythm IMPRESSION: Abnormal Awake and Asleep EE G 1. Posterior background slowing CLINICAL CORRELATION: The slowing seen i s consistent with a mild degree of encephalopathy. An EEG witho ut epileptiform discharges does not exclude the possibility of epil epsy. If the clinical suspicion of epilepsy remains, consider additional EEG recordings. Marleny Tee MD Epilepsy Fellow I certify that I have reviewed the entir e EEG with the fellow, read and edited the report above and agree wi th the conclusions. Andrei Mccain M.D., FACMIR, FAAN, JAMES Dunn Professor of Neurology, [facility] Medicine Director, [facility] e Epilepsy Center Head, Anil Castelan Neurophysiology Lab Procedure Note Interface, External Ris In - 01/30/2020 12:42 PM CDT [facility] Video EEG REPORT DATE(s) OF TEST: 01-30-20 DATE OF REPORT: 01-30-20 ACC: [id number] EE Start time: 0947hrs Stop time: 1008hrs ICD-10: R56.9 CPT Code: 17517 HISTORY: A 54yo right handed male with P MH of seizure presented to an OSH after having had 2 generalized shaki ng seizures last night and this morning. The etiology of his epilep sy is unknown. Denies recent fever, URI symptoms, alcohol or drugs us e or trauma. MEDICATIONS: Levetiracetam, Phenytoin, S eroquel, Zyprexa. TECHNICAL SUMMARY: This is a digital video EEG recorded wit h 32 input channels reviewed with bipolar and referential montages us ing the modified combinatorial system nomenclature. DESCRIPTION OF RECORD: During the maximally alert state a 7-8 H z posterior dominant rhythm was seen that was symmetric, reactive to eye opening and moderately well regulated. More anteriorly, low vo ltage frontocentral beta predominated. Drowsiness was characteri zed by alpha attenuation and increased frontocentral theta. Stage 2 s leep was reached characterized by symmetric sleep spindle s and K-complexes. HV: Hyperventilation was not performed. PHOTIC STIMULATION: Photic stimulation w as not done VIDEO EVENTS RECORDED: None ELECTROCARDIOGRAM EVENTS: Normal Sinus R hythm IMPRESSION: Abnormal Awake and Asleep EE G 1. Posterior background slowing CLINICAL CORRELATION: The slowing seen i s consistent with a mild degree of encephalopathy. An EEG withou t epileptiform discharges does not exclude the possibility of epil epsy. If the clinical suspicion of epilepsy remains, consider additional EEG recordings. Marleny Tee MD Epilepsy Fellow I certify that I have reviewed the entir e EEG with the fellow, read and edited the report above and agree wi th the conclusions. Andrei Mccain M.D., FACNS, FAAN, JAMES Dunn Professor of Neurology, [facility] Medicine Director, [facility] Epilepsy Center Head, Anil Castelan Neurophysiology Lab Performing Organization Address City/State/Zipcode Phone Number GE RIS CBC (Hemogram only) (01/30/2020 2:39 AM CDT) Pathologist Sig nature WBC 8.5 3.5 - 10.5 K/L [facility] RBC 4.07 (L) 4.63 - 6.08 M/L [facility] Hemoglobin 12.2 (L) 13.7 - 17.5 GM/DL [facility] Hematocrit 36.8 (L) 40.1 - 51.0 % [facility] MCV 90.4 79.0 - 92.2 fL [facility] MCH 30.0 25.7 - 32.2 pg [facility] MCHC 33.2 32.3 - 36.5 GM/DL [facility] RDW 13.1 11.6 - 14.4 % [facility] Platelets 146 (L) 150 - 450 K/CU MM [facility] MPV 10.5 9.4 - 12.4 fL [facility] nRBC 0 0 - 0 /100 WBC [facility] Specimen Blood Performing Organization Address City/[facility]/Zipcode Phone Number [facility] [address] [place] [address] CENTER Phosphorus (01/30/2020 2:39 AM CDT) Pathologist Sig nature Phosphorus 3.2 2.3 - 4.7 mg/dL [facility] Specimen Blood Narrative Performed At Flight Physician ID - DB [facility] Performing Organization Address City/[facility]/Zipcode Phone Number [address] [address] CENTER Magnesium (01/30/2020 2:39 AM CDT) Pathologist Sig nature Magnesium 2.0 1.6 - 2.6 mg/dL [facility] Specimen Blood Narrative Performed At Flight Physician ID - DB [facility] Performing Organization Address City/[facility]/Zipcode Phone Number [address] [address] [place] Hepatic function panel (01/30/2020 2:39 AM CDT) Pathologist Sig nature Protein, Total 6.2 6.0 - 8.3 gm/dL [facility] Albumin 3.3 (L) 3.5 - 5.0 g/dL [facility] Total Bilirubin 0.5 0.2 - 1.2 mg/dL [facility] Bilirubin, Direct 0.2 0.1 - 0.5 mg/dL [facility] Alkaline Phosphatase 73 40 - 150 U/L [facility] AST 20 5 - 34 U/L [facility] ALT 20 6 - 55 U/L [facility] Specimen Blood Narrative Performed At Flight Physician ID - DB [facility] Performing Organization Address City/[facility]/Zipcode Phone Number [facility] [address] [place] [address] [place] Urinalysis w/Microscopic + Reflex to Culture (01/29/2020 9:07 PM CDT) Color, UA Light Yellow [facility] Clarity, UA Clear [facility] Specific [place], 1.015 1.001 - 1.035 [facility] UA [facility] pH, UA 7.0 5.0 - 8.0 [facility] Protein, UA Negative Negative [facility] Glucose, UA Negative Negative [facility] Ketones, UA Negative Negative [facility] Bilirubin, UA Negative Negative [facility] Blood, UA Negative Negative [facility] Nitrite, UA Negative Negative [facility] Leukocytes, UA Negative Negative [facility] Urobilinogen, UA 0.2 0.2 - 1.0 mg/dL [facility] RBC, UA <1 /HPF [facility] WBC, UA 1 /HPF [facility] Squam Epithel, UA <1 /HPF [facility] Specimen Source [facility] Specimen Urine - Urine (substance) Narrative Performed At Flight Physician ID - [auto] [facility] Flight Physician ID - tech Performing Organization Address City/State/Zipcode Phone Number [facility] [address] [place], [place] [id number] CENTER after 07/15/2019 Advance Directives For more information, please contact: [phone] Code Status Date Activated Date Inactivated Comments Full Code 01/29/2020 2:55 PM 01/31/2020 3:17 PM This code status was determined by: Patient
--- NOTE | 2020-07-15 16:56 | RAD REPORT ---
EXAM DESCRIPTION: CT - Head Brain Wo Cont - 07/15/2020 4:48 pm CLINICAL HISTORY: TIA COMPARISON: October 2019 TECHNIQUE: Computed axial tomography of the head was obtained. IV contrast was not requested. All CT scans are performed using dose optimization technique as appropriate and may include automated exposure control or mA/KV adjustment according to patient size. FINDINGS: An intracranial bleed is not seen . The ventricles are normal in caliber. No extra-axial fluid collection is noted. Old lacunar infarcts basal ganglia and thalamus Moderate low-density areas within periventricular, deep and subcortical white matter likely represent ischemic changes secondary to small vessel disease. A demyelinating process can also result in this appearance Fluid within the sinuses/ mastoids is not seen. IMPRESSION: No acute intracranial abnormality is seen. If patient's symptoms persist MRI of the bra in would be recommended.
[2020-07-15 21:31] LABS: Absolute Lymphocytes (CBC) 1.6 K/uL (0.7-4.9); Basophils % 0.4 % (0-1.3); Hematocrit 39.9 % (39.6-49.0); Lymphocytes % 16.9 % (15.3-44.8); MPV 8.6 fL (7.6-11.3); RBC Red Blood Cell Count 4.46 M/uL (4.33-5.43)
[2020-07-15 21:54] LABS: ALT/SGPT 27 U/L (12-78); AST/SGOT 18 U/L (15-37); Albumin 3.6 g/dL (3.4-5.0); Alkaline Phosphatase 119 U/L (45-117); BUN Blood Urea Nitrogen 17 mg/dL (7-18); Bicarbonate 31 mmol/L (21-32); Bilirubin Direct < 0.1 mg/dL (0-0.2); Bilirubin Total 0.2 mg/dL (0.2-1.0); Glucose Level 76 mg/dL (74-106); Magnesium 2.3 mg/dL (1.8-2.4); NT PRO-BNP 64 pg/mL (<125); Potassium 4.1 mmol/L (3.5-5.1); Protein, Total 7.8 g/dL (6.4-8.2); Sodium Level 142 mmol/L (136-145); Troponin (Emerg Dept Use Only) < 0.02 ng/mL (0.0-0.045)
[2020-07-15 21:57] LABS: Protime INR 0.96
--- NOTE | 2020-07-16 00:44 | EDPHYS ---
Physician Documentation [facility] Name: Angela Weber Age: 55 yrs Sex: Male : 1965 Arrival Date: 07/15/2020 Time: 16:05 Bed 8 Private MD: ED Physician Tunde Diaz HPI: 07/16 00:50 This 55 yrs old Black Male presents to ER via Wheelchair with complaints of Weakness, jmm Trouble Walking, S/S of Possible Stroke. 00:50 The patient presents to the emergency department with a speech or higher order brain jmm function problem, difficult walking. Onset: The symptoms/episode began/occurred gradually, 2 week(s) ago. Associated signs and symptoms: Pertinent negatives: fever. This is a 55 year old male with a history of epilepsy that presents to the ED with complaints of difficulty walking, slurred speech, right sided weakness beginning on and off approx 2 weeks according to the . Symptoms worsened today with increased weakness. Seen by pcp and advised to go to the ED for further evaluation. . Historical: - PMHx: 07:44 CAD; Hypertension; ss - Immunization history:: Adult Immunizations up to date, Flu vaccine is not up to date. - Social history:: Smoking status: Patient reports the use of cigarette tobacco products, smokes two packs cigarettes per day. ROS: 00:50 Constitutional: Negative for fever, chills, and weight loss, Cardiovascular: Negative jmm for chest pain, palpitations, and edema, Respiratory: Negative for shortness of breath, cough, wheezing, and pleuritic chest pain. 00:50 Neuro: Positive for weakness. 00:50 All other systems are negative. Exam: 00:50 Constitutional: This is a well developed, well nourished patient who is awake, alert, jmm and in no acute distress. Head/Face: atraumatic. Eyes: EOMI, no conjunctival erythema appreciated ENT: Moist Mucus Membranes Neck: Trachea midline, Supple Chest/axilla: Normal chest wall appearance and motion. Cardiovascular: Regular rate and rhythm. No edema appreciated Respiratory: Normal respirations, no respiratory distress appreciated Abdomen/GI: Non distended, soft Back: Normal ROM Skin: General appearance color normal MS/ Extremity: Moves all extremities, no obvious deformities appreciated, no edema noted to the lower extremities 00:50 Neuro: Orientation: is normal, Mentation: is normal, Cranial nerves: facial droop noted on right, Cerebellar function: normal finger to nose testing, Motor: is normal. 00:50 Psych: Behavior/mood is pleasant, cooperative. Vital Signs: 07/15 16:12 BP 120 / 59; Pulse 65; Resp 17 S; Temp 97.5(TE); Pulse Ox 100% on R/A; Weight 65.77 kg ca1 (R); Height 5 ft. 4 in. (162.56 cm) (R); Pain 0/10; 20:32 BP 147 / 50; Pulse 66; Resp 17; Pulse Ox 100% ; ea 22:47 BP 127 / 56; Pulse 60; Resp 14; Pulse Ox 100% on R/A; rv 07/16 01:37 BP 118 / 60; Pulse 51; Resp 18; Pulse Ox 97% ; ea 07/15 16:12 Body Mass Index 24.89 (65.77 kg, 162.56 cm) ca1 NIH Stroke Scale Scores: 07/15 20:57 NIHSS Score: 1 rv 20:59 NIHSS Score: 1 rv MDM: 20:43 Patient medically screened. [facility] 07/16 00:38 Data reviewed: vital signs, nurses notes. Counseling: I had a detailed discussion with [facility] the patient and/or guardian regarding: the historical points, exam findings, and any diagnostic results supporting the discharge/admit diagnosis, lab results, radiology results, the need for further work-up and treatment in the hospital. ED course: I discussed the patient with Vladimir Burdick PA-C whom accepted the patient to Dr. Ramey service. 07/15 20:42 Order name: Basic Metabolic Panel; Complete Time: 21:56 [facility] 07/15 20:42 Order name: CBC with Diff; Complete Time: 21:41 [facility] 07/15 20:42 Order name: LFT's; Complete Time: 21:56 [facility] 07/15 20:42 Order name: Magnesium; Complete Time: 21:56 [facility] 07/15 20:42 Order name: NT PRO-BNP; Complete Time: 21:56 [facility] 07/15 20:42 Order name: PT-INR; Complete Time: 22:05 [facility] 07/15 20:42 Order name: Troponin (emerg Dept Use Only); Complete Time: 21:56 [facility] 07/16 05:56 Order name: Basic Metabolic Panel; Complete Time: 19:09 [facility] 07/16 05:56 Order name: Phosphorus; Complete Time: 19:09 [facility] 07/16 05:56 Order name: Lipid Profile; Complete Time: 19:09 [facility] 07/16 05:56 Order name: Magnesium; Complete Time: 19:09 [facility] 07/16 06:12 Order name: T4,Total; Complete Time: 19:09 [facility] 07/16 06:12 Order name: Thyroid Stimulating Hormone; Complete Time: 19:09 [facility] 07/16 06:34 Order name: RPR [facility] 07/15 16:20 Order name: Head Brain Wo Cont CT; Complete Time: 20:32 [facility] 07/15 20:42 Order name: XRAY Chest (1 view); Complete Time: 19:09 [facility] 07/15 20:42 Order name: EKG; Complete Time: 20:43 [facility] 07/15 20:42 Order name: Cardiac monitoring; Complete Time: 21:05 [facility] 07/15 20:42 Order name: EKG - Nurse/Tech; Complete Time: 21:05 [facility] 07/15 20:42 Order name: IV Saline Lock; Complete Time: 21:05 [facility] 07/15 20:42 Order name: Labs collected and sent; Complete Time: 21:05 [facility] 07/15 21:57 Order name: CT Head Angio [facility] 07/15 21:57 Order name: CT Neck Angio [facility] 07/16 01:14 Order name: CONS Physician Consult [facility] 07/16 06:52 Order name: Diet Heart Healthy; Complete Time: 06:52 [facility] 07/16 08:20 Order name: CBC with Automated Diff; Complete Time: 19:09 [facility] 07/16 13:35 Order name: Glucose, Ancillary Testing; Complete Time: 19:09 [facility] 07/16 13:44 Order name: MRI; Complete Time: 19:09 [facility] 07/16 13:44 Order name: MRI; Complete Time: 19:09 [facility] 07/16 13:55 Order name: MRI; Complete Time: 19:09 [facility] 07/15 20:42 Order name: O2 Per Protocol; Complete Time: 21:05 [facility] 07/15 20:42 Order name: O2 Sat Monitoring; Complete Time: 21:05 [facility] Administered Medications: No medications were administered Disposition: 19:08 Co-signature as Attending Physician, Tunde Diaz MD. pkl Disposition: 07/16/20 00:43 Hospitalization ordered by Evaristo Briggs for Inpatient Admission. Preliminary diagnosis is Cerebral infarction. - Bed requested for Telemetry/MedSurg (Inpatient). - Status is Inpatient Admission. eb - Condition is Stable. - Problem is new. - Symptoms are unchanged. NIH Stroke Scale - NIH Stroke Score Date: 07/15/2020 Time: 20:57 Total Score = 1 1a. Level of Consciousness (LOC) - 0(Alert) 1b. Level of Consciousness (LOC) (Year \T\ Age) - 0(Both) 1c. LOC Commands (Open \T\ Closes Eyes/Steel Box Toe Inserter) - 0(Both) 2. Best Gaze (Lateral Gaze Paresis) - 0(Normal) 3. Visual Field Loss - 0(No visual loss) 4. Facial Palsy - 1(Minor Paralysis) 5a. Left Arm: Motor (10-second hold) - 0(No drift) 5b. Right Arm: Motor (10-second hold) - 0(No drift) 6a. Left Leg: Motor (5-second hold - always test supine) - 0(No drift) 6b. Right Leg: Motor (5-second hold - always test supine) - 0(No drift) 7. Limb Ataxia (finger/nose \T\ heel/higuera - test with eyes open) - 0(Absent) 8. Sensory Loss (pinprick arms/legs/face) - 0(Normal) 9. Best Language: Aphasia (description/naming/reading) - 0(No aphasia) 10. Dysarthria (speech clarity - read or repeat words) - 0(Normal) 11. Extinction and Inattention (visual/tactile/auditory/spatial/personal) - 0(No abnormality) Initials: rv NIH Stroke Scale - NIH Stroke Score Date: 07/15/2020 Time: 20:59 Total Score = 1 1a. Level of Consciousness (LOC) - 0(Alert) 1b. Level of Consciousness (LOC) (Year \T\ Age) - 0(Both) 1c. LOC Commands (Open \T\ Closes Eyes/Steel Box Toe Inserter) - 0(Both) 2. Best Gaze (Lateral Gaze Paresis) - 0(Normal) 3. Visual Field Loss - 0(No visual loss) 4. Facial Palsy - 1(Minor Paralysis) 5a. Left Arm: Motor (10-second hold) - 0(No drift) 5b. Right Arm: Motor (10-second hold) - 0(No drift) 6a. Left Leg: Motor (5-second hold - always test supine) - 0(No drift) 6b. Right Leg: Motor (5-second hold - always test supine) - 0(No drift) 7. Limb Ataxia (finger/nose \T\ heel/higuera - test with eyes open) - 0(Absent) 8. Sensory Loss (pinprick arms/legs/face) - 0(Normal) 9. Best Language: Aphasia (description/naming/reading) - 0(No aphasia) 10. Dysarthria (speech clarity - read or repeat words) - 0(Normal) 11. Extinction and Inattention (visual/tactile/auditory/spatial/personal) - 0(No abnormality) Initials: rv Signatures: Dispatcher [employer] EDZaki Hammonds, CONOR RN Tunde Velasquez MD MD pkl Mickail, Joel, PA PA jmm Smirch, Shelby, RN RN Magalis Bose Cheryl, RN RN ca1 Corrections: (The following items were deleted from the chart) 01:06 00:43 Hospitalization Ordered by Evaristo Briggs MD for Inpatient Admission. Preliminary diagnosis is Cerebral infarction. Bed requested for Telemetry/MedSurg (observation). Status is Inpatient Admission. Condition is Stable. Problem is new. Symptoms are unchanged. [facility] 16:07 01:06 07/16/2020 00:43 Hospitalization Ordered by Evaristo Briggs MD for Inpatient Admission. Preliminary diagnosis is Cerebral infarction. Bed requested for [facility] ER HOLD. Status is Inpatient Admission. Condition is Stable. Problem is new. Symptoms are unchanged. 17:36 16:07 07/16/2020 00:43 Hospitalization Ordered by Evaristo Briggs MD for Inpatient Admission. Preliminary diagnosis is Cerebral infarction. Bed requested for Telemetry/MedSurg (Inpatient). Status is Inpatient Admission. Condition is Stable. Problem is new. Symptoms are unchanged. eb
--- NOTE | 2020-07-16 00:44 | ER ---
Nurse's Notes [facility] Name: Angela Weber Age: 55 yrs Sex: Male : 1965 Arrival Date: 07/15/2020 Time: 16:05 Bed 8 Private MD: Diagnosis: Cerebral infarction Presentation: 07/15 16:12 Chief complaint: Spouse and/or significant other states: This has been going on and off ca1 for the last 2 weeks, he can barely walk, he has difficulty swallowing, sleeps a lot, clenching in his R hand and weakness on the R leg. But today has been worse. At 1100 - 1130, he was so weak my son says he almost fell and his mouth was twitching. VAN negative in triage. No facial droop. No slurring. A \T\ 0 x 3. C/O R leg weakness. Coronavirus screen: Client denies travel out of the [place] in the last 14 days. At this time, the client does not indicate any symptoms associated with coronavirus-19. Ebola Screen: Patient negative for fever greater than or equal to 101.5 degrees Fahrenheit, and additional compatible Ebola Virus Disease symptoms Patient denies exposure to infectious person. Patient denies travel to an Ebola-affected area in the 21 days before illness onset. No symptoms or risks identified at this time. Initial Sepsis Screen: Does the patient meet any 2 criteria? No. Patient's initial sepsis screen is negative. Does the patient have a suspected source of infection? No. Patient's initial sepsis screen is negative. Risk Assessment: Do you want to hurt yourself or someone else? Patient reports no desire to harm self or others. Onset of symptoms was July 15, 2020 at 11:00. 16:12 Method Of Arrival: Wheelchair ca1 16:12 Acuity: JENNIFER 2 ca1 21:03 No acute neurological deficit is noted. Pre-hospital glucose is not applicable to this rv patient. Triage Assessment: 21:04 The onset of the patients symptoms was at an unknown time. General: Appears rv comfortable, Behavior is calm, cooperative. 21:04 Neuro: Reports weakness. rv Stroke Activation: Symptom onset > 6 hours Physician: Stroke Attending; Name: ; Notified At: ; Arrived At: Physician: Chief Stroke Resident; Name: ; Notified At: ; Arrived At: Physician: Stroke Resident; Name: ; Notified At: ; Arrived At: Physician: ED Attending; Name: ; Notified At: ; Arrived At: Physician: ED Resident; Name: ; Notified At: ; Arrived At: Historical: - PMHx: 07/16 07:44 CAD; Hypertension; ss - Immunization history:: Adult Immunizations up to date, Flu vaccine is not up to date. - Social history:: Smoking status: Patient reports the use of cigarette tobacco products, smokes two packs cigarettes per day. Screenin/03 20:57 Abuse screen: Denies threats or abuse. Denies injuries from another. Nutritional rv screening: No deficits noted. Tuberculosis screening: No symptoms or risk factors identified. VAN Screening: Arm Drift: Patient shows no arm weakness. Patient is VAN negative. Fall Risk Fall in past 12 months (25 points). Secondary diagnosis (15 points) CVA. Fall Risk No IV (0 pts). Ambulatory Aid- None/Bed Rest/Nurse Assist (0 pts). Gait- Weak (10 pts.). Mental Status- Oriented to own ability (0 pts). Total Cantu Fall Scale indicates Low Risk Score (25-44 pts). Fall prevention measures have been instituted. Side Rails Up X 2 Frequent Obs/Assesments occuring Family Present and informed to notify staff if they need to leave bedside As available Patient and Family Educated on Fall Prevention Program and strategies. Assessment: 20:59 VAN Scoring: Arm Drift: Patients demonstrates NO arm weakness. Patient is VAN Negative. rv The patient has not been NPO before screening. The patient is alert, and able to follow commands. The patient does not exhibit slurred or garbled speech. The patient is not exhibiting difficulty speaking. The patient does not exhibit difficulty understanding words. The patient is able to swallow own secretions with no drooling or need for suction. Patient tolerated one teaspoon of water. No drooling, immediate coughing, gurgling, or clearing of the throat was noted. The patient tolerated 90mL of water. No drooling, immediate coughing, gurgling, or clearing of the throat was noted. The patient passed the bedside swallow screening. Oral medications may be given as ordered. Contact Physician for further diet orders. Provider notified of bedside swallow screening results: Ramesh LEWIS. T-PA (Activase) Screening:. General: Appears comfortable, Behavior is calm, cooperative. Pain: Denies pain. Neuro: Level of Consciousness is awake, alert, obeys commands, Oriented to person, place, time, situation. Neuro: Cutting Machine Offbearer are equal bilaterally Moves all extremities. Full function Facial droop on right. Cardiovascular: Patient's skin is warm and dry. Rhythm is sinus rhythm. Respiratory: Airway is patent Respiratory effort is even, unlabored, Breath sounds are clear bilaterally. Derm: Skin is intact. Vital Signs: 16:12 BP 120 / 59; Pulse 65; Resp 17 S; Temp 97.5(TE); Pulse Ox 100% on R/A; Weight 65.77 kg ca1 (R); Height 5 ft. 4 in. (162.56 cm) (R); Pain 0/10; 20:32 BP 147 / 50; Pulse 66; Resp 17; Pulse Ox 100% ; ea 22:47 BP 127 / 56; Pulse 60; Resp 14; Pulse Ox 100% on R/A; rv 07/16 01:37 BP 118 / 60; Pulse 51; Resp 18; Pulse Ox 97% ; ea 07/15 16:12 Body Mass Index 24.89 (65.77 kg, 162.56 cm) ca1 NIH Stroke Scale Scores: 12 20:57 NIHSS Score: 1 rv 20:59 NIHSS Score: 1 rv ED Course: 16:05 Patient arrived in ED. as 16:17 Triage completed. ca1 16:18 Arm band placed on right wrist. ca1 16:49 Head Brain Wo Cont CT In Process Unspecified. EDMS 20:34 Ramesh Peters PA is PHCP. jm 20:34 Tunde Diaz MD is Attending Physician. jmm 20:56 Nico Quiroz, CONOR is Primary Nurse. rv 21:00 Inserted saline lock: 22 gauge in left hand, using aseptic technique. rv 21:04 Patient has correct armband on for positive identification. alarm security or surveillance monitor on. Pulse rv ox on. NIBP on. 21:30 XRAY Chest (1 view) In Process Unspecified. EDMS 22:46 Inserted saline lock: 18 gauge in right forearm, using aseptic technique. rv 23:13 CT Head Angio In Process Unspecified. EDMS 23:13 CT Neck Angio In Process Unspecified. EDMS 07/16 00:41 Evaristo Briggs MD is Hospitalizing Provider. lindsay Administered Medications: No medications were administered Outcome: 00:43 Decision to Hospitalize by Provider. lindsay 17:36 Patient left the ED. eb NIH Stroke Scale - NIH Stroke Score Date: 07/15/2020 Time: 20:57 Total Score = 1 1a. Level of Consciousness (LOC) - 0(Alert) 1b. Level of Consciousness (LOC) (Year \T\ Age) - 0(Both) 1c. LOC Commands (Open \T\ Closes Eyes/Trimmer Tailer) - 0(Both) 2. Best Gaze (Lateral Gaze Paresis) - 0(Normal) 3. Visual Field Loss - 0(No visual loss) 4. Facial Palsy - 1(Minor Paralysis) 5a. Left Arm: Motor (10-second hold) - 0(No drift) 5b. Right Arm: Motor (10-second hold) - 0(No drift) 6a. Left Leg: Motor (5-second hold - always test supine) - 0(No drift) 6b. Right Leg: Motor (5-second hold - always test supine) - 0(No drift) 7. Limb Ataxia (finger/nose \T\ heel/higuera - test with eyes open) - 0(Absent) 8. Sensory Loss (pinprick arms/legs/face) - 0(Normal) 9. Best Language: Aphasia (description/naming/reading) - 0(No aphasia) 10. Dysarthria (speech clarity - read or repeat words) - 0(Normal) 11. Extinction and Inattention (visual/tactile/auditory/spatial/personal) - 0(No abnormality) Initials: rv NIH Stroke Scale - NIH Stroke Score Date: 07/15/2020 Time: 20:59 Total Score = 1 1a. Level of Consciousness (LOC) - 0(Alert) 1b. Level of Consciousness (LOC) (Year \T\ Age) - 0(Both) 1c. LOC Commands (Open \T\ Closes Eyes/Trimmer Tailer) - 0(Both) 2. Best Gaze (Lateral Gaze Paresis) - 0(Normal) 3. Visual Field Loss - 0(No visual loss) 4. Facial Palsy - 1(Minor Paralysis) 5a. Left Arm: Motor (10-second hold) - 0(No drift) 5b. Right Arm: Motor (10-second hold) - 0(No drift) 6a. Left Leg: Motor (5-second hold - always test supine) - 0(No drift) 6b. Right Leg: Motor (5-second hold - always test supine) - 0(No drift) 7. Limb Ataxia (finger/nose \T\ heel/higuera - test with eyes open) - 0(Absent) 8. Sensory Loss (pinprick arms/legs/face) - 0(Normal) 9. Best Language: Aphasia (description/naming/reading) - 0(No aphasia) 10. Dysarthria (speech clarity - read or repeat words) - 0(Normal) 11. Extinction and Inattention (visual/tactile/auditory/spatial/personal) - 0(No abnormality) Initials: rv Signatures: Dispatcher [employer] EDMS Ramesh Peters PA PA jmm Martinez, Amelia as Smirch, Shelby, RN RN Libia Loyd, RN RN Magalis Ventura Ronaldo, RN RN rv Elizabeth Lloyd RN RN ca1
--- NOTE | 2020-07-16 02:00 | P.HP ---
Certification for Inpatient Patient admitted to: Observation With expected LOS: <2 Midnights Patient will require the following post-hospital care: None Practitioner: I am a practitioner with admitting privileges, knowledge of patient current condition, hospital course, and medical plan of care. Services: Services provided to patient in accordance with Admission requirements found in Title 42 Section 412.3 of the Code of Federal Regulations <Lenny Burdick - Last Filed: 07/16/20 01:55> Patient History Date of Service: 07/16/20 Primary Care Provider: OOT Reason for admission: CVA History of Present Illness: This is a 55-year-old male with a history of hypertension and seizure disorder along with psychiatric disorder that presented to the emergency room after was concerned that patient had abrupt decline in mental status an was presenting with focal neurologic deficits. had told emergency room staff that for the past couple weeks patient has had trouble walking, difficulty swallowing, has been sleeping a lot, and has noticed him to be clenching his right hand and has noticed some right leg weakness. Today they stated that around 11 o'clock this morning he started to have abrupt worsening of symptoms including ataxia, slurred speech, right leg weakness. Patient was worked up in the emergency room and found to have no acute laboratory findings. Patient had a CT of the head without contrast along with CT head neck angio again showing no acute ischemic or large vessel deficit. EKG without atrial fibrillation. Medicine was consulted at that time for further workup and admission. Upon initial assessment by myself in the emergency room patient currently with a an NIH of 0 and stated that he is feeling much better. Denies ever having these symptoms in the past. Home medications list reviewed: Yes - Past Medical/Surgical History Has patient received pneumonia vaccine in the past: No Diabetic: No -: HTN -: CAD - Social History Smoking Status: Current every day smoker Counseled patient to stop smoking for: less than 10 minutes Smoking therapy provided: Yes Patient receptive to therapy: Yes Alcohol use: Yes CD- Drugs: No Caffeine use: Yes Place of Residence: Home <Lia Burdickshua - Last Filed: 07/16/20 01:55> Date of Service: 07/16/20 <Evaristo Briggs - Last Filed: 07/16/20 08:09> Allergies No Known Allergies Allergy (Unverified 10/14/19 11:31) Home Medications: Amlodipine [Norvasc*] 1 tab PO DAILY 10/14/19 Clotrimazole [Lotrimin 1% Cream*] 1 appl TOP BID 10/14/19 Furosemide 1 tab PO DAILY 10/14/19 carvediloL [Carvedilol] 1 tab PO BID 10/14/19 Aspirin [Aspirin EC 81 MG] 81 mg PO DAILY #30 tablet. 10/17/19 Atorvastatin Calcium [Lipitor] 40 mg PO BEDTIME #30 tab 10/17/19 Azithromycin Tab [Zithromax*] 250 mg PO DAILY #3 tab 10/17/19 Cefuroxime Axetil [Cefuroxime] 500 mg PO BID #10 tab 10/17/19 Mometasone/Formoterol [Dulera 100 Mcg/5 Mcg Inhaler] 2 puff IH BID #1 inhaler 10/17/19 carBAMazepine [Tegretol*] 200 mg PO BID #60 tab 10/17/19 levETIRAcetam [Keppra*] 500 mg PO BID #60 tab 10/17/19 Review of Systems General: Unremarkable Eyes: Unremarkable ENT: Unremarkable Respiratory: Unremarkable Cardiovascular: Unremarkable Gastrointestinal: Unremarkable Genitourinary: Unremarkable Musculoskeletal: Unremarkable Integumentary: Unremarkable Neurological: As per HPI Lymphatics: Unremarkable <GennaroLenny - Last Filed: 07/16/20 01:55> Physical Examination - Vital Signs Temperature: 97.5 F Blood Pressure: 120/59 Pulse: 66 Respirations: 16 Pulse Ox (%): 100 (Room air) - Physical Exam General: Alert, In no apparent distress, Oriented x3, Cooperative HEENT: PERRLA, Mucous membr. moist/pink, EOMI Neck: Supple, 2+ carotid pulse no bruit, JVD not distended, No Thyromegaly Respiratory: Clear to auscultation bilaterally, Normal air movement Cardiovascular: No edema, Normal pulses, Regular rate/rhythm, Normal S1 S2, No gallops, No rubs, No murmurs Capillary refill: <2 Seconds Gastrointestinal: Normal bowel sounds, Soft and benign, Non-distended, No ascites, No tenderness, No masses, No rebound, No guarding Musculoskeletal: No clubbing, No swelling, No contractures, No erythema, No tenderness, No warmth Integumentary: No rashes, No breakdown, No significant lesion, No tenderness/swelling, No erythema, No warmth, No cyanosis Neurological: Normal gait, Normal speech, Normal strength at 5/5 x4 extr, Normal tone, Sensation intact, Cranial nerves 3-12 intact, Normal affect, Other (NIH 0) Lymphatics: No axilla or inguinal lymphadenopathy - Studies Laboratory Data (last 24 hrs) 07/15/20 21:17: PT 11.3, INR 0.96 07/15/20 21:17: WBC 9.4, Hgb 13.3 L, Hct 39.9, Plt Count 194 07/15/20 21:17: Sodium 142, Potassium 4.1, BUN 17, Creatinine 1.14, Glucose 76, Magnesium 2.3, Total Bilirubin 0.2, AST 18, ALT 27, Alkaline Phosphatase 119 H <Lenny Burdick - Last Filed: 07/16/20 01:55> - Studies Laboratory Data (last 24 hrs) 07/15/20 21:17: PT 11.3, INR 0.96 07/15/20 21:17: WBC 9.4, Hgb 13.3 L, Hct 39.9, Plt Count 194 07/15/20 21:17: Sodium 142, Potassium 4.1, BUN 17, Creatinine 1.14, Glucose 76, Magnesium 2.3, Total Bilirubin 0.2, AST 18, ALT 27, Alkaline Phosphatase 119 H <Evaristo Briggs - Last Filed: 07/16/20 08:09> Assessment and Plan - Problems (Diagnosis) (1) Hypertension Current Visit: Yes Status: Chronic Plan: Will continue to monitor blood pressure wall in the inpatient setting. Patient will be therapeutically hypertensive for concerns for acute ischemic stroke versus transient ischemic attack today. If blood pressure reaches over 220 systolic a 110 diastolic and will be treated. Qualifiers: Hypertension type: essential hypertension Qualified Code(s): I10 - Essential (primary) hypertension (2) Hyperlipidemia Current Visit: Yes Status: Chronic Plan: We will recheck patient's lipid profile panel. For the time being will continue atorvastatin 40 mg with consideration to increased 80 mg. Qualifiers: Hyperlipidemia type: unspecified Qualified Code(s): E78.5 - Hyperlipidemia, unspecified (3) CVA (cerebral vascular accident) Current Visit: Yes Status: Acute Plan: Patient appears to have transient ischemic attack versus cerebral vascular accident based on symptoms and story. As such patient will be treated with folic acid, aspirin, atorvastatin and will continue to have neurologic examinations and vital sign checks while in the inpatient setting. Patient RD had CTA head neck angio with no acute flow abnormalities. Will do an MRI stroke protocol in the morning and will consult Neurology for further assessment. Echocardiogram has also been ordered to ensure there is no LV your atrial thrombus. No suspected atrial fibrillation at this time based on EKG. Qualifiers: CVA mechanism: unspecified Qualified Code(s): I63.9 - Cerebral infarction, unspecified (4) Seizure disorder Current Visit: Yes Status: Acute Plan: Patient does have seizure disorder. We will continue to monitor patient to ensure he does not have seizure activity. Discharge Plan: Home Plan to discharge in: 24 Hours - Advance Directives Does patient have a Living Will: No Does patient have a Durable POA for Healthcare: No - Code Status/Comfort Care Code Status Assessed: Yes Code Status: Full Code Critical Care: No Time Spent Managing Pts Care (In Minutes): 70 <Lenny Burdick - Last Filed: 07/16/20 01:55> Date of Service: 07/16/20 Agree with plan of care. Await MRI of the brain. Patient will need continued workup at this time. Long-term plan of care if patient does not have a lot of improvement may be care home or if patient has any behavioral issues with his psychiatric history he may need butch-psychiatric evaluation as well. Will reassess patient's mentation throughout the day. <Evaristo Briggs - Last Filed: 07/16/20 08:09>
[2020-07-16 02:49] VITALS: BMI 24.1
[2020-07-16] MEDS ORDERED: ACETAMINOPHEN 500 MG TAB PO PRN (02:50)
[2020-07-16] MEDS: NA CHLORIDE 0.9% 1,000 ML IV SCH ×3 (02:50→18:04)
[2020-07-16] MEDS ORDERED: ONDANSETRON 4 MG/2 ML VIAL IV PRN (02:50)
[2020-07-16 05:55] LABS: BUN Blood Urea Nitrogen 15 mg/dL (7-18); Bicarbonate 29 mmol/L (21-32); Glucose Level 73 mg/dL (74-106); HDL Cholesterol 46 mg/dL (40-60); LDL Cholesterol, Calculated 132 (<130); Magnesium 2.2 mg/dL (1.8-2.4); Phosphorus 3.2 mg/dL (2.5-4.9); Sodium Level 141 mmol/L (136-145)
[2020-07-16 06:11] LABS: T4,Total 5.4 ug/dL (4.5-12.1); Thyroid Stimulating Hormone 2.38 uIU/mL (0.360-3.740)
[2020-07-16 08:12] LABS: Absolute Lymphocytes (CBC) 1.1 K/uL (0.7-4.9); Basophils % 0.6 % (0-1.3); Hematocrit 37.1 % (39.6-49.0); Lymphocytes % 15.2 % (15.3-44.8); MPV 8.7 fL (7.6-11.3); RBC Red Blood Cell Count 4.12 M/uL (4.33-5.43)
--- NOTE | 2020-07-16 08:27 | RAD REPORT ---
EXAM DESCRIPTION: RAD - Chest Single View - 07/15/2020 9:29 pm CLINICAL HISTORY: weakness COMPARISON: Single-view October 2019 TECHNIQUE: AP portable chest image was obtained 07/15/2020 9:29 pm . FINDINGS: Interstitial pattern within normal limits. The lung caceres are clear of any mass or consol idation. Heart and vasculature are normal. No measurable pleural effusion and no pneumothorax. No acu te bony abnormality seen. No acute aortic findings suspected. IMPRESSION: No acute cardiopulmonary process.
[2020-07-16] MEDS: FOLIC ACID 1 MG in NA CHLORIDE 0.9% 50 ML IV SCH (08:30)
[2020-07-16] MEDS ORDERED: INFLUENZA VACCINE (for 3y+) 0.5 ML DOSE IMVAC ONE ×2 (09:00→09:26)
[2020-07-16] MEDS ORDERED: ASPIRIN EC 81 MG TAB PO ONE (09:26)
[2020-07-16] MEDS: ASPIRIN EC 81 MG TAB PO SCH (09:40)
--- NOTE | 2020-07-16 13:42 | RAD REPORT ---
EXAM DESCRIPTION: MRI - MRA Head Wo Cont - 07/16/2020 1:23 pm CLINICAL HISTORY: Dysphagia, Ataxia CVA COMPARISON: Head angio dated 07/15/2020 FINDINGS: 3D noncontrast [id number] MR angiography of the [place] was performed. No aneurysm, flow-limiting stenosis or vascular malformation is seen. Forward flow seen in codominant vertebral arteries. The visualized dural venous sinuses appear patent. IMPRESSION: No significant flow abnormality of the [place] is identified.
--- NOTE | 2020-07-16 13:44 | RAD REPORT ---
EXAM DESCRIPTION: MRI - MRA Neck W/Wo Cont - 07/16/2020 1:23 pm CLINICAL HISTORY: Dysphagia; Ataxia COMPARISON: No comparisons FINDINGS: Contrast enhance 2D [id number] MR angiography of the neck vessels was performed. Both common carotid arteries and subclavian arteries are widely patent. Both internal carotid arteries demonstrate no significant stenosis or other flow abnormality. Antegra de flow seen in both vertebral arteries. IMPRESSION: No significant flow abnormality of the neck vessels is identified.
--- NOTE | 2020-07-16 13:54 | RAD REPORT ---
EXAM DESCRIPTION: MRI - Brain W/Wo Cont - 07/16/2020 1:23 pm CLINICAL HISTORY: Dysphagia; Ataxia Headache, drowsiness, CVA symptomology COMPARISON: MRA Head Wo Cont dated 07/16/2020 TECHNIQUE: Multi-sequence, multiplanar MR imaging of the brain was performed with contrast. FINDINGS: No intracranial hemorrhage, hydrocephalus, or extra-axial fluid collection.Areas of T2 and FLAIR hyperintensity in the periventricular and deep white matter is most compatible with chronic mi crovascular ischemic changes. No edema or shift of midline structures. No intracranial mass. DWI is n egative for acute CVA. The midline structures are normally formed. Mild paranasal sinus thickening is present. Mastoid air c ells are clear. Post-contrast images show no abnormal enhancement to suggest tumor or infection. IMPRESSION: Negative for acute CVA or other acute intracranial process. No pathologic post-contrast enhancement suspected.
--- NOTE | 2020-07-16 14:22 | ECHO ---
HEIGHT: 5 ft 5 in WEIGHT: 145 lb 0 oz DATE OF STUDY: 07/16/[address]: Lenny Burdick 2-DIMENSIONAL: YES M.MODE: YES DOPPLER: YES COLOR FLOW: YES TDS: PORTABLE: DEFINITY: BUBBLE STUDY: DIAGNOSIS: STROKE CARDIAC HISTORY: CATHERIZATION: NO SURGERY: NO PROSTHETIC VALVE: NO PACEMAKER: NO MEASUREMENTS (cm) DIASTOLIC (NORMALS) SYSTOLIC (NORMALS) IVSd 0.9 (0.6-1.2) LA Diam 3.1 (1.9-4.0) LVEF 86% LVIDd 4.8 (3.5-5.7) LVIDs 2.1 (2.0-3.5) %FS 55% LVPWd 1.0 (0.6-1.2) Ao Diam 2.6 (2.0-3.7) 2 DIMENSIONAL ASSESSMENT: RIGHT ATRIUM: NORMAL LEFT ATRIUM: NORMAL RIGHT VENTRICLE: NORMAL LEFT VENTRICLE: NORMAL TRICUSPID VALVE: NORMAL MITRAL VALVE: NORMAL PULMONIC VALVE: NORMAL AORTIC VALVE: NORMAL PERICARDIAL EFFUSION: NONE AORTIC ROOT: NORMAL LEFT VENTRICULAR WALL MOTION: NORMAL DOPPLER/COLOR FLOW: NORMAL COMMENTS: NORMAL LEFT VENTRICULAR SIZE AND FUNCTION. NO ATRIAL SEPTAL DEFECT. NO VENGETATION. NO THROMBUS. TECHNOLOGIST: ANGI GOTTLIEB
[2020-07-16] MEDS ORDERED: ATORVASTATIN 20 MG TAB PO SCH (21:00)
[2020-07-16 21:34] LABS: RPR (Rapid Plasma Reagin) NON-REACT (NON-REACT)
--- NOTE | 2020-07-16 22:16 | CON ---
Reason For Consultation: Consultation called because of possible stroke. History Of Present Illness: Mr. Weber is a 55-year-old right-handed patient with his tory of coronary artery disease, hypertension, reported previous strokes and seizures along with psyc hiatric disorder who comes to the [facility] after his noted a change in his strength. She thought his gait was unsteady. He had problems swallowing and was sleeping more than usual, and his right hand she thought was held more clenched and perhaps had weakness on the right leg. Sympto ms were off and on over a few days, but she thought it worsened somewhat around 11 a.m. on the [facility] er 3. At [facility], patient was evaluated by head CT scan on arrival and that was done on the July 16 when he came in, showed no acute ischemic or hemorrhagic change. CT angiogram of the head and neck also unremarkable. Subsequent brain MRI revealed chronic bilateral thalamic and basal ganglia strokes but no acute ischemic or hemorrhagic stroke. Brain MRA and neck MRA were unremarkabl e showing no occlusion. Echocardiogram showed ejection fraction of 86% with no abnormalities. No ve getation identified. The patient believes his situation is improved and he is mostly back to normal, although his believes his left face is drooping and he does have some right hand abnormal clenc ramesh and right leg weakness. Past Medical History: As noted. Allergies: NO KNOWN DRUG ALLERGIES. Family History: Noncontributory. Social History: Smokes a pack of cigarettes daily and drinks alcohol. Denies IV drugs. Drinks caff einated beverages. Medications: At home; Norvasc, carvedilol, Lotrimin, furosemide, aspirin 81 mg daily, Lipitor 40 mg at bedtime, Tegretol 200 mg twice daily, Keppra 500 mg twice daily. Review of Systems: Aside from mentioned above. He has no recent fevers, chills, nausea, vomiting, myalgias, arthralgias , rash, headache, weight change, psychiatric complaints, gastrointestinal issues. Physical Examination: Vital Signs: Blood pressure 120/55, pulse 54, respiratory rate 16, temperature 98.5, oxygen saturati on 100% room air. General: Ms. Weber is resting in bed. He is in no acute distress. HEENT: He is normocephalic, atraumatic. Sclerae anicteric. Oropharynx is pink and moist. Neck: Supple. Chest: Clear. Heart: Regular. Extremities: Show no edema, cyanosis, or clubbing. Neurological: He is alert and oriented to situation, place, and person. Follows all commands approp riately. He has no focal cranial nerve deficits I appreciate despite his saying there is some a symmetry in the face. He smiles symmetrically. Facial sensation intact to light touch temperature o eduardo distributions V1, V2, and V3 bilaterally. Hearing was intact to finger rub bilaterally. Tongue and palate are in the midline. Hearing intact bilaterally. Motor examination in the upper extremiti es bilaterally, 5/5 proximally and distally. Lower extremities, he appears to have a 4+ hip flexor s trength at the right, 5/5 on the left and otherwise in the flexor, extensor and plantar and dorsiflex ion in the lower extremities, normal at 5/5. Sensation intact in the arms and legs bilaterally. Nanny Babysitter rdination, he has mild dysmetria noted in the right lower extremity, otherwise intact on the left and intact in upper extremities. He has depressed reflexes in all extremities. He will be ambulated wi th the physical therapist. Laboratory Studies: Complete blood count with differential is essentially unremarkable except for sl ightly low hemoglobin of 12.1, platelets are normal. Coagulation panel shows INR 0.96. His basic me tabolic panel is unremarkable except slightly low calcium of 8.1 that is after hydration. LDL choles terol 132, total cholesterol 196, HDL cholesterol 46, TSH 2.38, T4 of 5.4. His RPR is pending. Assessment: Mr. Weber is a 55-year-old patient with no acute ischemic or hemorrhagic findings on his MRI, although he does appear to have some right lower extremity weakness, perhaps from his chronic st roke and strokes in the past. He does not have an infection by blood work or clinically. He will be nefit from the aspirin along with Plavix for 30 days, then switch to aspirin only. Lipitor 40 mg at bedtime. Folate 1 mg daily and may have some permissive short-term hypertension for about 5 days a w [place]. It should be noted that review of the patient's chart from prior admissions do show very elevat ed blood pressures at least briefly to 220s/110s and this is more than a year ago. Once the patient is evaluated by Physical therapy, he may be a candidate for rehabilitation perhaps outpatient dependi ng on how he is able to ambulate or if required home health for physical occupational therapy. He is not likely to require acute inpatient rehabilitation as his level of functioning is likely higher th an that. KLAUS Voice ID: [id number] Report ID: [id number]
[2020-07-17 00:09] VITALS: O2SAT 98
[2020-07-17] MEDS: NA CHLORIDE 0.9% 1,000 ML IV SCH (06:10)
[2020-07-17 06:26] LABS: Basophils % 0.5 % (0-1.3); Hematocrit 36.8 % (39.6-49.0); Lymphocytes % 14.5 % (15.3-44.8); RBC Red Blood Cell Count 4.12 M/uL (4.33-5.43)
[2020-07-17 06:48] LABS: BUN Blood Urea Nitrogen 12 mg/dL (7-18); Bicarbonate 29 mmol/L (21-32); Glucose Level 76 mg/dL (74-106); Phosphorus 3.1 mg/dL (2.5-4.9); Sodium Level 141 mmol/L (136-145)
--- NOTE | 2020-07-17 09:00 | RAD REPORT ---
EXAM DESCRIPTION: CT - Head angio - 07/16/2020 6:56 am CLINICAL HISTORY: WEAKNESS COMPARISON: None Available. TECHNIQUE: Multiple helical axial tomographic images were obtained of the head following administrat ion of intravenous contrast per angiographic protocol. Coronal and sagittal reformatted images were o btained. This exam was performed according to our departmental dose-optimization program, which inclu juliana automated exposure control, adjustment of the mA and/or kV according to patient size and/or use o f iterative reconstruction technique. FINDINGS: Mild intracranial carotid atherosclerosis is present. Intracranial segments of the bilat eral internal carotid arteries appear patent without significant stenosis or occlusion. Bilateral ant erior and middle cerebral arteries appear patent without significant stenosis or occlusion. Intracran ial segments of the bilateral vertebral arteries, basilar artery, and posterior cerebral arteries panchito ear patent without significant stenosis or occlusion. No evidence of intracranial aneurysm. Focal hypodensity in the left thalamus is suggestive of an old infarct. There is no acute intracran ial hemorrhage. No mass. No midline shift. No ventriculomegaly. Gloria-white matter differentiation is maintained. There is mild paranasal mucosal thickening. Mastoid air cells and middle ear spaces are clear. Orbits and orbital contents are unremarkable. Osseous structures are unremarkable. Surrounding soft tissues are unremarkable. IMPRESSION: No evidence of major intracranial arterial occlusion. Electronically signed by: Tristan Berrios MD 07/16/2020 12:08 AM MACHINE CONTAINER WASHER Due to temporary technical issues with the PACS/Fluency reporting system, reports are being signed by the in house radiologists without review as a courtesy to insure prompt reporting. The interpreting radiologist is fully responsible for the content of the report.
--- NOTE | 2020-07-17 09:01 | P.PN ---
Subjective Date of Service: 07/16/20 PATIENT'S PAIN IS COMING FROM A CALLUS ON THE RIGHT FOOT. THAT IS WHY HE IS WALKING ABNORMALLY. HIS NEUROLOGIC EXAM FAR IS A STRENGTH GOES IS PRETTY NORMAL EXCEPT FOR SOME MILD RIGHT LOWER EXTREMITY WEAKNESS. HE NEEDS TO SEE A TEACHER SPECIALIST AND WILL ALSO GET A RIGHT FOOT X-RAY TO MAKE SURE THERE IS NO FRA CTURE OR OSTEOMYELITIS. Review of Systems 10-point ROS is otherwise unremarkable Physical Examination - Vital Signs Temperature: 97.1 F Blood Pressure: 146/65 Pulse: 62 Respirations: 18 Pulse Ox (%): 100 - Physical Exam General: Alert, In no apparent distress, Oriented x3 Respiratory: Clear to auscultation bilaterally, Normal air movement Cardiovascular: Regular rate/rhythm, Normal S1 S2, No murmurs Gastrointestinal: Normal bowel sounds, Soft and benign, Non-distended, No tenderness Musculoskeletal: Tenderness Integumentary: Erythema, Warmth Neurological: Sensation intact, Cranial nerves 3-12 intact - Studies Medications List Reviewed: Yes Assessment & Plan - Problems (Diagnosis) (1) Callus of foot Status: Acute (2) CVA (cerebral vascular accident) Status: Acute Qualifiers: CVA mechanism: unspecified Qualified Code(s): I63.9 - Cerebral infarction, unspecified (3) Seizure disorder Status: Acute (4) Hyperlipidemia Status: Chronic Qualifiers: Hyperlipidemia type: unspecified Qualified Code(s): E78.5 - Hyperlipidemia, unspecified (5) Hypertension Status: Chronic Qualifiers: Hypertension type: essential hypertension Qualified Code(s): I10 - E ssential (primary) hypertension (6) Pneumonia Status: Acute Qualifiers: Pneumonia type: due to unspecified organism Laterality: right - Plan PLAN: 1. MRI OF THE BRAIN IS PENDING 2. ANTIBIOTICS AND PAIN MEDICATION 3. PODIATRY FOLLOW; Patient needs to get the callus treated; He will not have as much pain when he puts his right foot down& he may be able to walk much better 4. WALKER; we are working on getting it arranged 5. GI AND DVT PROPHYLAXIS Discharge Plan: Home Plan to discharge in: 48 Hours - Advance Directives Does patient have a Living Will: No Does patient have a Durable POA for Healthcare: No - Code Status/Comfort Care Code Status: Full Code Critical Care: No Time Spent Managing PTS Care (In Minutes): 30
--- NOTE | 2020-07-17 09:01 | RAD REPORT ---
EXAM DESCRIPTION: CT - Neck Angio - 07/16/2020 6:57 am CLINICAL HISTORY: 55 years Male unilateral weakness COMPARISON: None TECHNIQUE: Images were obtained in axial, sagittal, and coronal planes. Intravenous contrast was adm inistered. 3-D MIP imaging was performed. Vasculature was evaluated utilizing the NASCET criteria. This exam was performed according to our departmental dose-optimization program which includes use of Automated Exposure Control, adjustment of the mA and/or kV according to patient size and/or use of iterative reconstruction technique. FINDINGS: Mild calcified plaque bifurcation and proximal internal carotid arteries bilaterally. Carrillo nt right common, internal, and external carotid arteries. Tortuosity right external carotid artery. P atent left common, internal, and external carotid arteries. Patent vertebral arteries bilaterally. No hemodynamically significant or greater than 50% narrowing involving the carotid arteries bilateral ly. No evidence for dissection. Great vessels widely patent at their origins from the aortic arch. Patency Rolf arteries bilateral ly. Common origin of innominate and left carotid arteries consistent with bovine arch. Mild centrilobular emphysema upper lungs bilaterally. Mild degenerative changes cervical spine. IMPRESSION: No hemodynamically significant narrowing involving the carotid arteries bilaterally. Mild calcified plaque bifurcations bilaterally. COPD. Electronically signed by: Sandhya Hernandez MD 07/15/2020 11:51 PM PRODUCTION CONTROL COORDINATOR Due to temporary technical issues with the PACS/Fluency reporting system, reports are being signed by the in house radiologists without review as a courtesy to insure prompt reporting. The interpreting radiologist is fully responsible for the content of the report.
[2020-07-17] MEDS ORDERED: ENOXAPARIN 40 MG/0.4 ML SQ ONE (09:09)
[2020-07-17] MEDS: FOLIC ACID 1 MG in NA CHLORIDE 0.9% 50 ML IV SCH (09:32)
[2020-07-17] MEDS: ASPIRIN EC 81 MG TAB PO SCH (09:32)
--- NOTE | 2020-07-17 11:02 | RAD REPORT ---
EXAM DESCRIPTION: RAD - Foot Right 2 View - 07/17/2020 10:45 am CLINICAL HISTORY: Foot pain FINDINGS: Large erosion involves the distal aspect of the first distal phalanx. Large erosion involv es the distal aspect of the fifth middle phalanx. Vague lucency is present within the distal aspect o f the third middle phalanx. This could indicate osteomyelitis. If clinically indicated further evalua tion with MRI may be helpful Fifth distal phalanx has been resected. No fracture or dislocation seen
[2020-07-22 14:39] VITALS: BP 146/65; TEMP 97.1
--- NOTE | 2020-07-22 14:42 | P.DS ---
Discharge Date: 07/17/20 Primary Care Provider: STAN Disposition: ROUTINE DISCHARGE Discharge Condition: GOOD Reason for Admission: CVA - Problems (1) Callus of foot Status: Acute (2) CVA (cerebral vascular accident) Status: Acute Qualifiers: CVA mechanism: unspecified Qualified Code(s): I63.9 - Cerebral infarction, unspecified (3) Seizure disorder Status: Acute (4) Hyperlipidemia Status: Chronic Qualifiers: Hyperlipidemia type: unspecified Qualified Code(s): E78.5 - Hyperlipidemia, unspecified (5) Hypertension Status: Chronic Qualifiers: Hypertension type: essential hypertension Qualified Code(s): I10 - Essential (primary) hypertension (6) Pneumonia Status: Acute Qualifiers: Pneumonia type: due to unspecified organism Laterality: right Brief History of Present Illness: This is a 55-year-old male with a history of hypertension and seizure disorder along with psychiatric disorder that presented to the emergency room after was concerned that patient had abrupt decline in mental status an was presenting with focal neurologic deficits. had told emergency room staff that for the past couple weeks patient has had trouble walking, difficulty swallowing, has been sleeping a lot, and has noticed him to be clenching his right hand and has noticed some right leg weakness. Today they stated that around 11 o'clock this morning he started to have abrupt worsening of symptoms including ataxia, slurred speech, right leg weakness. Patient was worked up in the emergency room and found to have no acute laboratory findings. Patient had a CT of the head without contrast along with CT head neck angio again showing no acute ischemic or large vessel deficit. EKG without atrial fibrillation. Medicine was consulted at that time for further workup and admission. Upon initial assessment by myself in the emergency room patient currently with a an NIH of 0 and stated that he is feeling much better. Denies ever having these symptoms in the past. Hospital Course: On further evaluation the patient had deep callus on the right foot that was causing him an excruciating amount of pain. Whenever he would put his right foot down he would have a lot of pain as he was not able to walk on it normally. At that time, a decision was made to get him arranged for outpatient podiatry follow up as well as a walker so he would not be able to put as much pressure of the right foot until the callus is healed. Deficits at this time. Patient is stable for discharge with outpatient follow up with podiatry and neurology. Vital Signs/Physical Exam: Temp Pulse Resp BP Pulse Ox 97.1 F 62 18 146/65 H 100 07/22/20 14:38 07/22/20 14:38 07/22/20 14:38 07/22/20 14:38 07/22/20 14:38 General: Alert, In no apparent distress, Oriented x3 Laboratory Data at Discharge: WBC 7.0 K/uL (4.3-10.9) 07/17/20 05:50 Hgb 12.2 g/dL (13.6-17.9) L 07/17/20 05:50 Hct 36.8 % (39.6-49.0) L 07/17/20 05:50 Plt Count 194 K/uL (152-406) 07/17/20 05:50 PT 11.3 SECONDS (9.5-12.5) 07/15/20 21:17 INR 0.96 07/15/20 21:17 Sodium 141 mmol/L (136-145) 07/17/20 05:50 Potassium 4.0 mmol/L (3.5-5.1) 07/17/20 05:50 BUN 12 mg/dL (7-18) 07/17/20 05:50 Creatinine 0.93 mg/dL (0.55-1.3) 07/17/20 05:50 Glucose 76 mg/dL (74-106) 07/17/20 05:50 Phosphorus 3.1 mg/dL (2.5-4.9) 07/17/20 05:50 Magnesium 2.0 mg/dL (1.8-2.4) 07/17/20 05:50 Total Bilirubin 0.2 mg/dL (0.2-1.0) 07/15/20 21:17 AST 18 U/L (15-37) 07/15/20 21:17 ALT 27 U/L (12-78) 07/15/20 21:17 Alkaline Phosphatase 119 U/L (45-117) H 07/15/20 21:17 Triglycerides 88 mg/dL (<150) 07/16/20 05:18 Cholesterol 196 mg/dL (<200) 07/16/20 05:18 HDL Cholesterol 46 mg/dL (40-60) 07/16/20 05:18 Cholesterol/HDL Ratio 4.26 07/16/20 05:18 Home Medications: Amlodipine [Norvasc*] 1 tab PO DAILY 10/14/19 Furosemide 1 tab PO DAILY 10/14/19 carvediloL [Carvedilol] 1 tab PO BID 10/14/19 levETIRAcetam [Keppra*] 500 mg PO BID #60 tab 10/17/19 PHENYTOIN ER Cap [Dilantin ER Cap*] 300 mg PO DAILY 07/16/20 Aspirin [Ecotrin 81 MG] 162 mg PO DAILY #60 tablet. 07/17/20 Atorvastatin Calcium [Lipitor*] 40 mg PO BEDTIME #30 tab 07/17/20 Minocycline HCl 100 mg PO BID #14 capsule 07/17/20 Salicylic Acid/Ceramide Cmb #1 [Salicylic Acid 6% Cream Kit] 1 each TP BID #1 kit.clcmer 07/17/20 Sulfamethoxazole/Trimethoprim [Bactrim Ds Tablet] 1 each PO BID #14 tablet 07/17/20 New Medications: Sulfamethoxazole/Trimethoprim [Bactrim Ds Tablet] 1 each PO BID #14 tablet Aspirin [Ecotrin 81 MG] 162 mg PO DAILY #60 tablet. Atorvastatin Calcium [Lipitor*] 40 mg PO BEDTIME #30 tab Minocycline HCl 100 mg PO BID #14 capsule Salicylic Acid/Ceramide Cmb #1 [Salicylic Acid 6% Cream Kit] 1 each TP BID #1 kit.clcmer Patient Discharge Instructions: OK TO DC IV AND DC HOME. FOLLOW-UP WITH PRIMARY CARE PROVIDER IN 1-2 WEEKS. FOLLOW-UP WITH NEUROLOGY IN 1-2 WEEKS. FOLLOW-UP WITH PODIATRY IN 1-2 WEEKS. RETURN TO THE ER IF SYMPTOMS WORSEN. CALL or TEXT DR. CHRISTIE AT [phone] IF ANY QUESTIONS REGARDING HOSPITAL STAY. PLEASE CALL THE FLOOR AT [phone] IF ANY MEDICATION OR NURSING QUESTIONS. Diet: AHA Activity: Fall precautions Followup: Tyrone Mckenzie MD [ASSOCIATE-ACTIVE - CAN ADMIT] - STAN PIERCE [Primary Care Provider] - Devin Charles JR DPM [ASSOCIATE-ACTIVE - CAN ADMIT] - Time spent managing pt's care (in minutes): 35
== END 2020-07-17 15:36 | disposition home or self-care (01) ==
LOC: ER 16:04 → ERHOLD 07-16 02:08 → 2ND 07-16 17:07
PROVIDERS: ADMIT Hospitalist; ATTEND Hospitalist
DX: R29.898 Other symptoms and signs involving the musculoskeletal system (principal); Z20.828 Contact with and (suspected) exposure to other viral communicable diseases; Z23 Encounter for immunization; J18.9 Pneumonia, unspecified organism; I25.10 Atherosclerotic heart disease of native coronary artery without angina pectoris; R47.81 Slurred speech; L84 Corns and callosities; M79.671 Pain in right foot; E78.5 Hyperlipidemia, unspecified; I10 Essential (primary) hypertension; G40.909 Epilepsy, unspecified, not intractable, without status epilepticus; F17.210 Nicotine dependence, cigarettes, uncomplicated; Z86.73 Personal history of transient ischemic attack (TIA), and cerebral infarction without residual deficits
CPT/HCPCS: 93306; 85025 ×3; 80048 ×3; 36415 ×2; 83735 ×3; 84100 ×2; 85610; 80061; 82947 ×5; 80076; 86592; 84436; 85652; 84443; 84484; 83880; 70450; 70496; 70498; 71045; 73620; 90471; 70553; 70544; 70549; 97112; 97116; 97161; 99284; U0002; Q9967; A9577; Q2035; J1650; J7030 ×2; G0378 ×3

== ENCOUNTER 2020-10-07 17:31 | Emergency (ER) | payer OTHER ==
--- OUTSIDE RECORDS SUMMARY | 2020-10-07 17:35 | XMS REPORT | Continuity of Care Document ---
:1965 Author Organization [facility] t Address [address] [place] [address] Care Team Providers Name Role Phone Ai Olsen MD Attending Clinician Tete RUBIO Attending Clinician Ana Lilia Mesa MD Attending Clinician AI OLSEN Attending Clinician Unavailable ANA LILIA MESA Admitting Clinician Unavailable Payers Payer Name Policy Type Policy Effective Date Expiration Date Sour ce Number MEDICAREMEDICARE A [id number] 2005 [facility] CotxtsujRL760/08/2005-P 00:00:00 - Medical resent[facility] Center MEDICAIDMEDICAID OF [id number] 2019 EDWIN [facility] [id number] 2019 00:00:00 - [facility] [place] Problems Condition Condition Condition Status Onset Resolution Last Treating Co mments Source Name Details Category Date Date Treatment Clinician Date Seizure Seizure Disease Active [facility] Allergies, Adverse Reactions, Alerts This patient has no known allergies or adverse reactions. Social History Social Habit Start Date Stop Date Quantity Comments Source Sex Assigned At [facility] Medications Ordered Filled Start Stop Current Ordering Indication Dosage Frequency Signature Comments Components Source Medication Medication Date Date Medication? Clinician (SIG) Name Name phenytoin 2019-0 Yes 300mg QD Take [address] [facility] [address] extended 6-20 mg by Noemykes - (DILANTIN) 13:17: mouth Medica l 300 MG ER 37 daily. Center capsule furosemide Yes 40mg QD Take [address] (LASIX) 40 6-20 by mouth [facility] - MG tablet 13:17: daily. Medica [address] OLANZapine 2020-0 Yes 5mg QD Take [address] (ZYPREXA) 6-20 by mouth [facility] - 2.5 MG 13:17: nightly. Medical tablet 37 [place] QUEtiapine 2020-0 Yes 200mg Q.5D Take [address] (SEROQUEL) 6-20 mg by [facility] - 200 MG 13:17: mouth 2 Medical tablet 37 (two) Center times daily. amLODIPine 2020-0 Yes 5mg QD Take [address] (NORVASC) 5 6-20 by mouth [facility] - MG tablet 13:17: daily. [address] carvediloL 2020-0 Yes 3.125mg Take 3.[address] (COREG) 6-20 mg by [facility] - 3.125 MG 13:17: mouth 2 Medica l tablet 37 (two) Center times daily with breakfast and dinner. cholecalcif 2020-0 Yes 5000U QD Take 5,[address] [address] stefanie, 6-20 Units by [facility] - vitamin D3, 13:17: mouth Medic al (VITAMIN 37 daily. [place] D3) 125 mcg (5,000 unit) capsule lisinopriL 2019-0 Yes 10mg QD Take [address] (PRINIVIL,Z 6-20 by mouth [facility] - ESTRIL) 10 13:17: daily. Medic al MG tablet [address] [place] [address] naltrexone 2020-0 Yes 25mg QD Take [address] (DEPADE) 50 6-20 by mouth [facility] - mg tablet 13:17: daily. [address] aspirin 81 2020-0 Yes 81mg QD Take [address] MG EC 6-20 by mouth [facility] - tablet 13:17: daily. [address] carBAMazepi 2020-0 2020- No 200mg Q.5D Take [address] ne 6-20 06-20 mg by [facility] - (TEGRETOL) 09:18: 00:00 mouth 2 Med ical 200 mg 21 :00 (two) Center tablet times daily. divalproex 2020-0 2020- No 500mg Q.5D Take [address] (DEPAKOTE) 6-20 06-20 mg by [facility] - 500 MG EC 09:18: 00:00 mouth 2 Medi faith tablet 21 :00 (two) Center times daily. levETIRAcet Yes Seizure 500mg Q.5D Take [address] am (KEPPRA) 6-20 (HCC) tablet [facility] - 500 MG 00:00: (500 mg Medical tablet 00 total) by Center mouth 2 (two) times daily. Vital Signs Vital Name Observation Time Observation Value Comments Source Systolic blood 2020-01-31 07:15:00 161 mm[Hg] [facility] Diastolic blood 2020-01-31 07:15:00 75 mm[Hg] [facility] Heart rate 2020-01-31 07:15:00 59 /min [facility] Body temperature 2020-01-31 07:15:00 36.28 Karey [facility] Respiratory rate 2020-01-31 07:15:00 18 /min [facility] Oxygen saturation in 2020-01-31 07:15:00 96 /min [facility] Arterial blood by Medical Ce nter Pulse oximetry Body height 2020-01-29 13:46:00 165.1 cm [facility] Body weight 2020-01-29 13:46:00 68.04 kg [facility] BMI 2020-01-29 13:46:00 24.96 kg/m2 [facility] Procedures Procedure Date / Time Performed Performing Clinician [facility] e RHYTHM STRIP - SCAN 2020-02-03 12:50:22 Provider, Default [facility] RHYTHM STRIP - SCAN 2020-02-02 11:50:34 Provider, Default [facility] BASIC METABOLIC PANEL 2020-01-31 05:27:00 Maribell Epstein [facility] () [facility] CBC W/PLT COUNT & AUTO 2020-01-31 05:27:00 Anabelle Mesa [facility] EEG AWAKE AND DROWSY 2020-01-30 10:24:00 María Valladares [facility] BASIC METABOLIC PANEL 2020-01-30 02:39:00 Maribell Epstein [facility] () [facility] HEPATIC FUNCTION PANEL 2020-01-30 02:39:00 [facility]ell [facility] MAGNESIUM 2020-01-30 02:39:00 Maribell Epstein [facility] PHOSPHORUS 2020-01-30 02:39:00 Maribell Epstein [facility] CBC (HEMOGRAM ONLY) 2020-01-30 02:39:00 Maribell Epstein [facility] URINALYSIS W/ REFLEX 2020-01-29 21:07:00 Maribell Epstein [facility] URINE CULTURE [facility] Plan of Care Planned Activity Planned Date Details Comments Source Future Scheduled 2020-04-[address] [facility] - Test 00:00:00 (#1) [code = [facility] INFLUENZA VACCINE (#1)] Future Scheduled 2006-10-[address] [facility] - Test 00:00:00 WELLNESS (YEAR 2 or [facility] FIRST YEAR if no IPPE) [code = MEDICARE ANNUAL WELLNESS (YEAR 2 or FIRST YEAR if no IPPE)] Future Scheduled [address] [facility] - Test 00:00:00 (procedure) [code = [facility] 73458874] Future Scheduled [address] [facility] - Test 00:00:00 malignant neoplasm Medical C enter of colon (procedure) [code = 886727823] Results Test Description Test Time Test Comments Results Result Comments Source Basic metabolic panel 2020-01-31 06:53:00 Test Item Value Reference Range Interpretation Comme nts Sodium (test code = 138 meq/L 781-134 2521-2) Potassium (test code = 4.0 meq/L 3.5-5.1 2823-3) Chloride (test code = 107 meq/L 98-107 2075-0) CO2 (test code = 8-9) 24 meq/L 22-29 BUN (test code = 3094-0) 17 mg/dL 7-21 Creatinine (test code = 1.04 mg/dL 0.57-1.25 2160-0) Glucose (test code = 77 mg/dL 70-105 2345-7) Calcium (test code = 8.4 mg/dL 8.4-10.2 71116-0) EGFR (test code = INSUFFICIE NT CLINICAL DATA 68137-4) TO CALCULATE ES TIMATED GFR. JUAN ANTONIO (test code = JUAN ANTONIO) Wardrobe Supervisor ID - ROLAND Buchanan [facility] [id number] 06:53:00 Test Item Value Reference Range Interpretation [...] 1092) DATA TO CALCULA TE ESTIMATED GFR. Wardrobe Supervisor ID - ROALND MCBC with platelet count + automated [id number] 05:46:00 Test Item Value Reference Range Interpretation Comments WBC (test code = 6690-2) 8.0 See_Comment [A utomated message] The system YES.TAP generated this result transmitted ref erence range: 3.5 - 10 .5 K/L. The refe rence range was not u sed to interpret this result as normal/abnor mal. RBC (test code = 789-8) 4.18 See_Comment L [Au tomated message] The system YES.TAP generated this result transmitted ref erence range: 4.63 - 6 .08 M/L. The refe rence range was not u sed to interpret this result as normal/abnor mal. MCHC (test code = 786-4) 31.9 See_Comment L [A utomated message] The system YES.TAP generated this result transmitted ref erence range: 32.3 - 3 6.5 GM/DL. The refe rence range was not u sed to interpret this result as normal/abnor mal. Hematocrit (test code = 38.3 % 40.1-51 L 4544-3) MCV (test code = 787-2) 91.6 fL 79-92.2 MCH (test code = 785-6) 29.2 pg 25.7-32.2 RDW (test code = 788-0) 13.2 % 11.6-14.4 Platelets (test code = 150 See_Comment [Aut omated message] 777-3) The system YES.TAP generated this result transmitted ref erence range: 150 - 45 0 K/CU MM. The referen ce range was not u sed to interpret this result as normal/abnor mal. MPV (test code = 10.6 fL 9.4-12.4 52812-5) nRBC (test code = 413) 0 See_Comment [Aut omated message] The system YES.TAP generated this result transmitted ref erence range: 0 - 0 /1 00 WBC. The refere nce range was not u sed to interpret this result as normal/abnor mal. % Neutros (test code = 67 % 429) % Lymphs (test code = 15 % 430) % Monos (test code = 9 % 431) % Eos (test code = 432) 8 % % Baso (test code = 437) 1 % # Neutros (test code = 5.30 See_Comment [Aut omated message] 670) The system YES.TAP generated this result transmitted ref erence range: 1.78 - 5 .38 K/L. The refe rence range was not u sed to interpret this result as normal/abnor mal. # Lymphs (test code = 1.18 See_Comment L [Auto mated message] 414) The system YES.TAP generated this result transmitted ref erence range: 1.32 - 3 .57 K/L. The refe rence range was not u sed to interpret this result as normal/abnor mal. # Monos (test code = 0.73 See_Comment [Autom ated message] 415) The system YES.TAP generated this result transmitted ref erence range: 0.30 - 0 .82 K/L. The refe rence range was not u sed to interpret this result as normal/abnor mal. # Eos (test code = 416) 0.67 See_Comment H [Au tomated message] The system YES.TAP generated this result transmitted ref erence range: 0.04 - 0 .54 K/L. The refe rence range was not u sed to interpret this result as normal/abnor mal. # Baso (test code = 417) 0.05 See_Comment [A utomated message] The system YES.TAP generated this result transmitted ref erence range: 0.01 - 0 .08 K/L. The refe rence range was not u sed to interpret this result as normal/abnor mal. Immature 0 % 0-1 Granulocytes-Relative (test code = 2801) Lab Interpretation (test Abnormal code = 49867-1) [facility] W/PLT COUNT & AUTO [id number] 05:46:00 Test Item Value Reference Range Interpretation [...] (test code = 2801) EEG AWAKE AND [id number] 12:42:00Reason for exam:->seizure [facility] RE[facility] DATE(s) OF TEST: 01-30-20DATE OF REPORT: 01-30-20 ACC: [id number]: Start time: 0947hrsStop time: 1008hrs ICD-10: R56.9CPT Code: 64458 HISTORY: A 54yo right handed male with [...] agree with the conclusions. Andrei Mccain M.D., FACNS, FAAN, FAESProfessor of Neurology, [place] campusDirector, [facility] Ep[facility]Gre[facility] Neurophys[facility] EEG AWAKE AND [id number] 12:42:00Interface, External Ris In - 01/30/2020 12:42 PM CDTCH[facility] Video EEG REPORT DATE(s) OF TEST: 01-30-20DATE OF REPORT: 01-30-20 ACC: [id number]: Start time: 0947hrsStop time: 1008hrs ICD-10: R56.9CPT Code: 29342 HISTORY: A 54yo right handed male with PMH of seizure presented to [facility] after having had 2 generalized shaking seizures [...] agree with the conclusions. Andrei Mccain M.D., FACNS, FAAN, FAESProfessor of Neurology, [place] campusDirector, [facility] Epilepsy [facility] Neurophysiology Lab [facility] 2020-01-30 03:13:00 Test Item Value [...] 1092) DATA TO CALCULA TE ESTIMATED GFR. Wardrobe Supervisor ID - DBHepatic function [id number] 03:12:00 Test Item Value Reference Range Interpretation Comments Protein, Total (test 6.2 See_Comment [Autom ated code = 2885-2) message] The system which generated this result transmit mikhail reference range : 6.0 - 8.3 gm/dL . The reference range was not u sed to interpret th is result as normal/abnormal . Albumin (test code = 3.3 g/dL 3.5-5 L 58116-3) Total Bilirubin (test 0.5 mg/dL 0.2-1.2 code = 1975-2) Bilirubin, Direct 0.2 mg/dL 0.1-0.5 (test code = 1967-7) Alkaline Phosphatase 73 U/L 40-150 (test code = 6768-6) AST (test code = 20 U/L 5-34 1920-8) ALT (test code = 20 U/L 6-55 1742-6) JUAN ANTONIO (test code = JUAN ANTONIO) Wardrobe Supervisor ID - DB Lab Interpretation Abnormal (test code = 63798-8) [facility] 03:12[facility]00 Test Item Value Reference Range Interpretation Comments Magnesium (test code = 2.0 mg/dL 1.6-2.6 53451-3) JUAN ANTONIO (test code = JUAN ANTONIO) Wardrobe Supervisor ID - DB Lab Interpretation (test Normal code = 49675-4) [facility] 03:12:00 Test Item Value Reference Range Interpretation Comments Phosphorus (test code = 3.2 mg/dL 2.3-4.7 2777-1) JUAN ANTONIO (test code = JUAN ANTONIO) Wardrobe Supervisor ID - DB Lab Interpretation (test Normal code = 94587-6) [facility] 03:12:00 Test Item Value Reference Range Interpretation Comments PHOSPHORUS (BEAKER) (test code = 3.2 mg/dL 2.3-4.7 604) Wardrobe Supervisor ID - [id number] 03:12:00 Test Item Value Reference Range Interpretation Comments MAGNESIUM (BEAKER) (test code = 2.0 mg/dL 1.6-2.6 627) Wardrobe Supervisor ID - DBHEPATIC FUNCTION [id number] 03:12:00 Test Item Value Reference Range Interpretation [...] (test code = 20 U/L 6-55 347) Wardrobe Supervisor ID - DBCBC (Hemogram only)2020-01-30 02:49:00 Test Item Value Reference Range Interpretation Comments WBC (test code = 6690-2) 8.5 See_Comment [A utomated message] The system YES.TAP generated this result transmitted ref erence range: 3.5 - 10 .5 K/L. The refe rence range was not u sed to interpret this result as normal/abnor mal. RBC (test code = 789-8) 4.07 See_Comment L [Au tomated message] The system YES.TAP generated this result transmitted ref erence range: 4.63 - 6 .08 M/L. The refe rence range was not u sed to interpret this result as normal/abnor mal. MCHC (test code = 786-4) 33.2 See_Comment L [A utomated message] The system YES.TAP generated this result transmitted ref erence range: 32.3 - 3 6.5 GM/DL. The refe rence range was not u sed to interpret this result as normal/abnor mal. Hematocrit (test code = 36.8 % 40.1-51 L 4544-3) MCV (test code = 787-2) 90.4 fL 79-92.2 MCH (test code = 785-6) 30.0 pg 25.7-32.2 RDW (test code = 788-0) 13.1 % 11.6-14.4 Platelets (test code = 146 See_Comment L [Aut omated message] 777-3) The system YES.TAP generated this result transmitted ref erence range: 150 - 45 0 K/CU MM. The referen ce range was not u sed to interpret this result as normal/abnor mal. MPV (test code = 10.5 fL 9.4-12.4 50695-2) nRBC (test code = 413) 0 See_Comment [Aut omated message] The system YES.TAP generated this result transmitted ref erence range: 0 - 0 /1 00 WBC. The refere nce range was not u sed to interpret this result as normal/abnor mal. Lab Interpretation (test Abnormal code = 12279-5) [facility] (HEMOGRAM ONLY)2020-01-30 02:49:00 Test Item Value [...] = 413) Urinalysis w/Microscopic + Reflex to [id number] 22:21:00 Test Item Value Reference Range Interpretation Comments Color, UA (test Light Yellow code = 5778-6) Clarity, UA (test Clear code = 5767-9) Specific [place], 1.015 1.001-1.035 UA (test code = 5811-5) pH, UA (test code 7.0 5.0-8.0 = 5803-2) Protein, UA (test Negative Negative code = 67036-8) Glucose, UA (test Negative Negative code = 365) Ketones, UA (test Negative Negative code = 2514-8) Bilirubin, UA Negative Negative (test code = 83407-0) Blood, UA (test Negative Negative code = 75858-8) Nitrite, UA (test Negative Negative code = 5802-4) Leukocytes, UA Negative Negative (test code = 5799-2) Urobilinogen, UA 0.2 mg/dL 0.2-1 (test code = 87807-9) RBC, UA (test <1 See_Comment [Automated me ssage] code = 93578-0) The system [facility] generated this result transmit mikhail reference range : /HPF. The refer ence range was not u sed to interpret th is result as normal/abnormal . WBC, UA (test 1 See_Comment [Automated me ssage] code = 5821-4) The system [facility] generated this result transmit mikhail reference range : /HPF. The refer ence range was not u sed to interpret th is result as normal/abnormal . Squam Epithel, UA <1 See_Comment [Automate d message] (test code = The system [facility] 28517-4) generated this result transmit mikhail reference range : /HPF. The refer ence range was not u sed to interpret th is result as normal/abnormal . Specimen Source (test code = 2795) JUAN ANTONIO (test code = Wardrobe Supervisor ID - JUAN ANTONIO) [auto]Wardrobe Supervisor ID - tech [facility]/ REFLEX URINE [id number] 22:21:00 Test Item Value Reference Range Interpretation [...] = 516) SOURCE(BEAKER) (test code = 2795) Wardrobe Supervisor ID - [auto]Wardrobe Supervisor ID - tech
--- NOTE | 2020-10-08 00:19 | EDPHYS ---
Physician Documentation [facility] Name: Angela Weber Age: 55 yrs Sex: Male : 1965 Arrival Date: 10/07/2020 Time: 17:32 Bed 23 Private MD: ED Physician Gabriel Morley HPI: 10/07 21:12 This 55 yrs old Black Male presents to ER via Ambulatory with complaints of lung jmm problem. 21:12 Onset: The symptoms/episode began/occurred at an unknown time. Duration: The symptoms jmm are continuous. This is a 55 year old male with ahistory of CAD, HTN that presents to the ED with no complaints. Sent by pcp due to hearing crackles in the lungs. Patient denies any swelling or shortness of breath. Historical: - Allergies: 17:52 No Known Allergies; tw2 - Home Meds: 17:52 Lasix 20 mg Oral tab 1 tab once daily [Active]; lisinopril 20 mg Oral tab 1 tab once tw2 daily [Active]; amlodipine 2.5 mg tab 1 tab once daily [Active]; Keppra 250 mg Oral tab 2 tabs 2 times per day [Active]; Dilantin 30 mg Oral cap [Active]; "bipolar medicine" [Active]; - PMHx: 17:52 CAD; Hypertension; Bipolar disorder; tw2 - PSHx: 17:52 None; tw2 - Immunization history:: Adult Immunizations. - Social history:: Smoking status: . ROS: 21:58 Constitutional: Negative for fever, chills, and weight loss, Cardiovascular: Negative jmm for chest pain, palpitations, and edema, Respiratory: Negative for shortness of breath, cough, wheezing, and pleuritic chest pain, Neuro: Negative for headache, weakness, numbness, tingling, and seizure. 21:58 All other systems are negative. Exam: 21:58 Constitutional: This is a well developed, well nourished patient who is awake, alert, jmm and in no acute distress. Head/Face: atraumatic. Eyes: EOMI, no conjunctival erythema appreciated ENT: Moist Mucus Membranes Neck: Trachea midline, Supple Chest/axilla: Normal chest wall appearance and motion. Cardiovascular: Regular rate and rhythm. No edema appreciated Respiratory: Normal respirations, no respiratory distress appreciated Abdomen/GI: Non distended, soft Back: Normal ROM Skin: General appearance color normal MS/ Extremity: Moves all extremities, no obvious deformities appreciated, no edema noted to the lower extremities Neuro: Awake and alert, normal gait Psych: Behavior is normal, Mood is normal, Patient is cooperative and pleasant 21:58 Musculoskeletal/extremity: no edema appreciated bilaterally. 21:58 Skin: Appearance: Color: normal in color. 21:58 Neuro: Orientation: is normal, Mentation: is normal, Memory: is normal. 21:58 Psych: Behavior/mood is pleasant, cooperative. Vital Signs: 17:48 BP 138 / 70; Pulse 58; Resp 18; Temp 97.9(TE); Pulse Ox 100% on R/A; Weight 65.77 kg tw2 (R); Height 5 ft. 5 in. (165.10 cm); Pain 0/10; 22:56 BP 142 / 76; Pulse 56; Resp 16; Pulse Ox 97% on R/A; zb 23:25 BP 120 / 71; Pulse 60; Resp 15; Pulse Ox 95% on R/A; zb 10/08 00:28 BP 116 / 68; Pulse 68; Resp 16; Pulse Ox 98% on R/A; zb 10/07 17:48 Body Mass Index 24.13 (65.77 kg, 165.10 cm) tw2 MDM: 10/07 21:12 Patient medically screened. hannah 10/08 00:17 Data reviewed: vital signs, nurses notes. Counseling: I had a detailed discussion with lindsay the patient and/or guardian regarding: the historical points, exam findings, and any diagnostic results supporting the discharge/admit diagnosis, radiology results, the need for outpatient follow up, to return to the emergency department if symptoms worsen or persist or if there are any questions or concerns that arise at home. ED course: Patient is alert and non toxic in appearance in the ED. No signs of resp distress. CXR negative. Advised to follow up with pcp and otherwise given strict return precautions. Patient understood and agrees with the plan of care. . 10/07 21:32 Order name: Chest Single View XRAY ilndsay Administered Medications: No medications were administered Disposition: 10/08/20 00:18 Discharged to Home. Impression: Person with feared health complaint in whom no diagnosis is made. - Condition is Stable. - Discharge Instructions: Heart Failure. - Medication Reconciliation Form, Thank You Letter, Antibiotic Education, Prescription Opioid Use form. - Follow up: Private Physician; When: 2 - 3 days; Reason: Recheck today's complaints, Continuance of care, Re-evaluation by your physician. Addendum: 10/11/2020 06:07 Co-signature as Attending Physician, Gabriel Morley MD I agree with the assessment and c ochoa plan of care. Signatures: Dispatcher [employer] EDGabriel Jimenez MD MD cha Mickail, Joel, PA PA Daila Velazquez, RN RN tw2 Judit Kern RN RN zb Corrections: (The following items were deleted from the chart) 10/08 00:30 00:18 10/08/2020 00:18 Discharged to Home. Impression: Person with feared health zb complaint in whom no diagnosis is made. Condition is Stable. Forms are Medication Reconciliation Form, Thank You Letter, Antibiotic Education, Prescription Opioid Use. Follow up: Private Physician; When: 2 - 3 days; Reason: Recheck today's complaints, Continuance of care, Re-evaluation by your physician. [facility]
--- NOTE | 2020-10-08 00:19 | ER ---
Nurse's Notes [facility] Name: Angela Weber Age: 55 yrs Sex: Male : 1965 Arrival Date: 10/07/2020 Time: 17:32 Bed 23 Private MD: Diagnosis: Person with feared health complaint in whom no diagnosis is made Presentation: 10/07 17:48 Chief complaint: Spouse and/or significant other states: home health nurse called his tw2 doctor \\T\\ they said to bring him here to be evaluated, he does have a slight cough. Coronavirus screen: cough unrelated to allergies, Client presents with at least one sign or symptom that may indicate coronavirus-19. Standard/surgical mask placed on the client. Provider contacted for isolation considerations. Ebola Screen: Patient denies travel to an Ebola-affected area in the 21 days before illness onset. Initial Sepsis Screen: Does the patient meet any 2 criteria? No. Patient's initial sepsis screen is negative. Does the patient have a suspected source of infection? No. Patient's initial sepsis screen is negative. Risk Assessment: Do you want to hurt yourself or someone else? Patient reports no desire to harm self or others. Onset of symptoms was October 07, 2020. 17:48 Method Of Arrival: Ambulatory tw2 17:48 Acuity: JENNIFER 3 tw2 Triage Assessment: 17:52 General: Appears in no apparent distress. slender, well groomed, Behavior is calm, tw2 cooperative, appropriate for age. Pain: Denies pain. Respiratory: Airway is patent Respiratory effort is even, unlabored, Respiratory pattern is regular, symmetrical. Historical: - Allergies: 17:52 No Known Allergies; tw2 - Home Meds: 17:52 Lasix 20 mg Oral tab 1 tab once daily [Active]; lisinopril 20 mg Oral tab 1 tab once tw2 daily [Active]; amlodipine 2.5 mg tab 1 tab once daily [Active]; Keppra 250 mg Oral tab 2 tabs 2 times per day [Active]; Dilantin 30 mg Oral cap [Active]; "bipolar medicine" [Active]; - PMHx: 17:52 CAD; Hypertension; Bipolar disorder; tw2 - PSHx: 17:52 None; tw2 - Immunization history:: Adult Immunizations. - Social history:: Smoking status: . Screenin:28 Abuse screen: Denies threats or abuse. Denies injuries from another. Nutritional zb screening: No deficits noted. Tuberculosis screening: No symptoms or risk factors identified. Fall Risk None identified. Assessment: 21:26 General: Appears in no apparent distress. comfortable, Behavior is calm, cooperative, zb appropriate for age, Denies fever, feeling ill, fatigue, chills. Pain: Denies pain. Neuro: Level of Consciousness is awake, alert, obeys commands, Oriented to person, place, time, situation, Laboratory Development Technician are equal bilaterally Speech is normal. Cardiovascular: Reports None Denies chest pain, Heart tones S1 S2 present Capillary refill < 3 seconds Patient's skin is warm and dry. Pulses are all present. Edema is absent. Respiratory: Reports cough that is productive, persistent Airway is patent Respiratory effort is even, unlabored, Respiratory pattern is regular, symmetrical, Breath sounds are clear in left upper lobe, left lower lobe, left posterior upper lobe and left posterior lower lobe Breath sounds are diminished in right upper lobe, right middle lobe, right posterior upper lobe, right posterior middle lobe and right posterior lower lobe Denies shortness of breath labored breathing, pain with respiration, pain with cough, pain with movement. GI: Abdomen is round non-distended, Bowel sounds. : No signs and/or symptoms were reported regarding the genitourinary system. EENT: No signs and/or symptoms were reported regarding the EENT system. Derm: Skin is intact, Skin is dry, Skin is normal, Skin temperature is warm. Musculoskeletal: Circulation, motion, and sensation intact. Range of motion: intact in all extremities. 22:56 Reassessment: Patient appears in no apparent distress at this time. Patient and/or zb family updated on plan of care and expected duration. Pain level reassessed. Patient is alert, oriented x 3, equal unlabored respirations, skin warm/dry/pink. 23:26 Reassessment: Patient and/or family updated on plan of care and expected duration. Pain zb level reassessed. Patient is alert, oriented x 3, equal unlabored respirations, skin warm/dry/pink. patient and awaiting results. patient currently eating . no changes from last status. 10/08 00:29 Reassessment: d/c information given. patient and ambulated into waiting room. gait zb steady and even. Vital Signs: 10/07 17:48 BP 138 / 70; Pulse 58; Resp 18; Temp 97.9(TE); Pulse Ox 100% on R/A; Weight 65.77 kg tw2 (R); Height 5 ft. 5 in. (165.10 cm); Pain 0/10; 22:56 BP 142 / 76; Pulse 56; Resp 16; Pulse Ox 97% on R/A; zb 23:25 BP 120 / 71; Pulse 60; Resp 15; Pulse Ox 95% on R/A; zb 10/08 00:28 BP 116 / 68; Pulse 68; Resp 16; Pulse Ox 98% on R/A; zb 10/07 17:48 Body Mass Index 24.13 (65.77 kg, 165.10 cm) tw2 ED Course: 10/07 17:32 Patient arrived in ED. as 17:47 Arm band placed on. tw2 17:50 Triage completed. tw2 21:09 Judit Kern RN is Primary Nurse. zb 21:11 Ramesh Peters PA is PHCP. [facility] 21:11 Gabriel Morley MD is Attending Physician. m 21:28 Patient has correct armband on for positive identification. Bed in low position. Call zb light in reach. Side rails up X 1. Pulse ox on. NIBP on. Door closed. Noise minimized. Warm blanket given. 22:20 Chest Single View XRAY In Process Unspecified. EDMS 10/08 00:29 No provider procedures requiring assistance completed. Patient did not have IV access zb during this emergency room visit. Administered Medications: No medications were administered Outcome: 00:18 Discharge ordered by . jm 00:30 Discharged to home ambulatory, with family. zb 00:30 Condition: stable 00:30 Discharge instructions given to patient, family, Instructed on discharge instructions, follow up and referral plans. Demonstrated understanding of instructions, follow-up care. 00:30 Patient left the ED. zb Signatures: Dispatcher [employer] EDPA Ramesh Peters PA PA jmm Martinez, Amelia as Wise, Tara, RN RN tw2 Judit Kern RN RN zb
[2020-10-08 05:24] VITALS: TEMP 97.9
[2020-10-08 05:28] VITALS: BP 116/68; O2SAT 98
--- NOTE | 2020-10-08 12:13 | RAD REPORT ---
EXAM DESCRIPTION: RAD - Chest Single View - 10/07/2020 10:20 pm CLINICAL HISTORY: SOB TECHNIQUE: Single frontal view of the chest is submitted. COMPARISON: None available for comparison FINDINGS: Lungs: No focal consolidation. Pleura: No appreciable effusion. No pneumothorax. IV Heart: The cardiothoracic silhouette is within normal limits. Mediastinum: Thoracic aortic atherosclerosis. Bones: Intact Upper abdomen: Unremarkable IMPRESSION: No acute disease. Electronically signed by: Taya Worthington MD 10/07/2020 10:30 PM CAR SEAT [employer]KER Due to temporary technical issues with the PACS/Fluency reporting system, reports are being signed by the in house radiologist without review as a courtesy to ensure prompt reporting. The interpreting r adiologist is fully responsible for the content of the report.
== END 2020-10-08 00:30 | disposition home or self-care (01) ==
LOC: ER 17:31
DX: Z71.1 Person with feared health complaint in whom no diagnosis is made (principal); I10 Essential (primary) hypertension; F31.9 Bipolar disorder, unspecified; I25.10 Atherosclerotic heart disease of native coronary artery without angina pectoris
CPT/HCPCS: 71045; 99283

== ENCOUNTER 2022-11-06 10:45 | Day surgery (SDC) | payer OTHER ==
[2022-11-06] MEDS ORDERED: Ringers Lactate 1,000 ML IV ONE (11:21)
[2022-11-06] MEDS ORDERED: GLYCOPYRROLATE 0.2 MG/ML SYR ONE (11:26)
[2022-11-06] MEDS ORDERED: LIDOCAINE 4% TOP SOLUTION ONE (11:26)
[2022-11-06] MEDS ORDERED: Phenylephrine HCl 10 MG/ML 1 ML VIAL ONE (11:26)
[2022-11-06] MEDS ORDERED: LIDOCAINE VISCOUS 2% SOLN 15 ML UDC ONE (11:49)
[2022-11-06] MEDS ORDERED: LIDOCAINE 1% MPF 30 ML VIAL ONE (11:49)
[2022-11-06] MEDS ORDERED: LIDOCAINE 1% MPF 5 ML VIAL ONE (11:59)
[2022-11-06] MEDS ORDERED: propofoL 200 MG/20 ML VIAL IV ONE ×2 (11:59)
[2022-11-06] MEDS ORDERED: FENTANYL CITR 100 MCG/2 ML ONE (11:59)
--- NOTE | 2022-11-06 12:27 | P.OP ---
Date of Service: 11/06/22 (Bronchoscopy with right upper lobe transbronchial biopsies in the BAL) Findings and Operative Technique Patient is 57 years of age evaluated by me with Pancoast syndrome symptoms has some ptosis on the right eye right arm weakness and a large right upper lobe mass and is an active smoker has the reason for bronchoscopy After obtaining informed consent from the patient he was premedicated by anesthesia finding normal vocal cord normal trachea normal Tess normal right and left-sided bronchial anatomy no endobronchial lesions visible all subsegmental bronchi were clearly patent no endobronchial tumor was visible multiple biopsies were performed from the right upper lobe including a BAL patient tolerated the procedure very well did not experience any arrhythmias or complications postoperative chest x-ray has been ordered CT scan have been uploaded into the [employer] system
--- NOTE | 2022-11-06 12:47 | RAD REPORT ---
EXAM DESCRIPTION: RAD - Fluoroscopy <1 Hour - 11/06/2022 12:35 pm CLINICAL HISTORY: BRONCHOSCOPY COMPARISON: <Comparisons> FINDINGS/IMPRESSION: Three intraoperative fluoroscopic images were submitted demonstrating a broncho scopy of the right lung. Fluoro time: 4 minutes 14 seconds
[2022-11-06 13:09] VITALS: TEMP 98.6; O2SAT 96
--- NOTE | 2022-11-06 13:49 | RAD REPORT ---
EXAM DESCRIPTION: RAD - Chest Single View - 11/06/2022 1:33 pm CLINICAL HISTORY: S/P BRONCH R/O PNEUMOTHORAX COMPARISON: Chest Single View dated 10/07/2020; Chest Single View dated 07/15/2020; Chest Single View dated 10/14/2019Chest Single View dated 10/07/2020; Chest Single View dated 07/15/2020; Chest Single View dated 10/14/2019 FINDINGS: Lines: None. Lungs: Large right upper lobe mass. Mild right basilar opacities that may reflect atelectasis. Pleural: No significant pleural effusions or pneumothorax. Cardiac: The heart size is within normal limits. Mediastinum: Within normal limits. Bones: No acute fractures. Other: None IMPRESSION: No pneumothorax following right-sided bronchoscopy. Right upper lobe mass noted. Opaciti es at the right lung base may reflect atelectasis or pneumonitis. The left lung is clear.
[2022-11-06 14:07] VITALS: BP 121/83
== END 2022-11-06 14:05 | disposition home or self-care (01) ==
LOC: OR 10:45
PROVIDERS: ATTEND Internal Medicine Sleep Medicine
PROC: 0B9C8ZX Drainage of Right Upper Lung Lobe, Via Natural or Artificial Opening Endoscopic, Diagnostic (ICD-10-PCS; 2022-11-06)
PROC: 0BBC8ZX Excision of Right Upper Lung Lobe, Via Natural or Artificial Opening Endoscopic, Diagnostic (ICD-10-PCS; principal; 2022-11-06 12:00)
DX: C34.11 Malignant neoplasm of upper lobe, right bronchus or lung (principal); J44.9 Chronic obstructive pulmonary disease, unspecified; I11.0 Hypertensive heart disease with heart failure; I50.9 Heart failure, unspecified; E78.5 Hyperlipidemia, unspecified; R56.9 Unspecified convulsions; F31.9 Bipolar disorder, unspecified; F17.210 Nicotine dependence, cigarettes, uncomplicated; Z79.899 Other long term (current) drug therapy
CPT/HCPCS: 71045; 76000; 87015; 87102; 87116; 87206; 88108; 88305; J2001; J2370; J2704; J3010; J7120